=== PATIENT | male | born 1945 | race Caucasian/White ===

== ENCOUNTER 2016-09-05 04:52 | Observation (INO) ==
--- NOTE | 2016-09-05 05:38 | Emergency Department Note ---
Disposition Clinical Impression: Acute exacerbation of chronic obstructive airways disease Disposition: Admitted As Inpatient Condition: Fair Referrals: Babatunde Maldonado, [employer] [Primary Care Provider] - SOB HPI - General Stated Complaint: shortness of breath Source: patient Mode of arrival: EMS Limitations: no limitations Nursing Notes Reviewed: Yes Vital Signs Reviewed: Yes - History of Present Illness Patient presents to the ED via EMS with report of worsening shortness of breath and lower extremity swelling. Patient was just recently hospitalized at [facility] from 08/24-08/27 for CHF and COPD exacerbation. States he has had increasing dyspnea and swelling since then. He has a chronic cough that is productive of clear sputum. He reports nasal congestion and rhinorrhea but no sore throat. He reports chills but no fever. He denies any chest pain, nausea, vomiting, diarrhea or constipation. He wears home O2 at 4 L and is on Lasix 40mg BID. No CPAP or BiPAP. He saw his PCP, Tk Maldonado on 09/01 for follow-up and was given another three-day course of prednisone. He was on a prednisone taper at discharge and also completed 6 days of ceftin. Per EMS, oxygen saturation was 88-90% on 4 L on their arrival. He was given albuterol, DuoNeb, 80 mg Lasix IV , 125 mg Solu-Medrol IV, 0.3 mg epi 1:1000 IV and Zofran 4 mg IV. He was placed on CPAP during transport. States his breathing is improved but he still feels short of breath. In addition to CHF and COPD patient has history of diabetes and multiple myeloma for which he is undergoing chemotherapy. states he was seen by home health yesterday and "his vitals were all good". He also saw oncology on 08/31 and 09/01 and received his usual chemotherapy doses. - Related Data Home Medications Medication Instructions Recorded Confirmed Levothyroxine [Synthroid] 175 mcg PO DAILY 09/06/15 08/24/16 Aspirin [Adult Low Dose Aspirin EC] 81 mg PO DAILY 09/13/15 08/24/16 Simvastatin [Zocor] 40 mg PO HS 09/13/15 08/24/16 Gabapentin [Neurontin] 300 mg PO TID 02/11/16 08/24/16 SitaGLIPtin [Januvia] 100 mg PO DAILY 02/11/16 08/24/16 Dicyclomine HCl [Bentyl] 20 mg PO QID PRN 05/11/16 08/24/16 Insulin Glargine,Hum.rec.anlog 75 unit SQ BID 05/11/16 08/24/16 [Lantus Solostar] Insulin LISPRO [Humalog Kwikpen 45 - 55 unit SQ TIDWM 05/11/16 08/24/16 U-100] Montelukast [Singulair] 10 mg PO DAILY 05/11/16 08/24/16 Potassium Chloride [K-Tab ER] 40 meq PO Q48H 05/11/16 08/24/16 Furosemide [Lasix] 40 mg PO BID 08/24/16 08/24/16 Ipratropium/Albuterol Neb [Duoneb] 3 ml IH Q4HR 08/24/16 08/24/16 Metolazone [Zaroxolyn] 5 mg PO DAILY 08/24/16 08/24/16 Primidone [Mysoline] 50 mg PO BID 08/24/16 08/24/16 Fentanyl [Duragesic] 75 mcg TD Q72H PRN 09/05/16 09/05/16 Lansoprazole [Prevacid] 30 mg PO DAILY 09/05/16 09/05/16 Previous Rx's Medication Instructions Recorded Ondansetron [Zofran] 8 mg PO BID #60 tablet 11/01/15 Propranolol HCl 40 mg PO BID #60 tablet 06/11/16 ClonazePAM [Klonopin] 0.25 mg PO BID PRN #7 tablet 07/03/16 Gentamicin Oint [Garamycin] 1 appl TP DAILY #1 tube 07/03/16 Guaifenesin [Guaifenesin ER] 1,200 mg PO BID PRN #40 tab.er.12h 07/03/16 FentaNYL PATCH [Duragesic] 50 mcg TD Q72H #10 patch.td72 07/28/16 Pomalidomide [Pomalyst] 2 mg PO DAILY #21 capsule 08/19/16 PredniSONE 60 mg PO DAILY #30 tablet 08/27/16 Allergies Allergy/AdvReac Type Severity Reaction Status Date / Time No Known Allergies Allergy Verified 09/05/16 05:11 Constitutional: Denies: fever, chills, weakness, weight change Eyes: Denies: eye pain, eye discharge, vision change ENT ED: Denies: ear pain, throat pain, dental pain, hearing loss, epistaxis, congestion, dysphagia Cardiovascular: Reports: as per HPI, edema. Denies: chest pain, palpitations, dyspnea on exertion, syncope Respiratory: Reports: as per HPI, cough, dyspnea, wheezes, sputum production. Denies: hemoptysis, stridor Gastrointestinal: Denies: abdominal pain, nausea, vomiting, diarrhea, constipation, hematemesis, melena, hematochezia Genitourinary: Denies: urgency, dysuria, frequency, hematuria Musculoskeletal: Denies: back pain, neck pain, arthralgia, myalgia Integumentary: Denies: rash, abrasion, lesions Neurological: Denies: headache, weakness, numbness, paresthesias, confusion, abnormal gait, vertigo Psychiatric: Denies: anxiety, depression, suicidal thoughts, homicidal thoughts , auditory hallucinations, visual hallucinations Endocrine: Denies: fatigue Hematological/Lymphatic: Denies: easy bleeding, easy bruising Allergic/Immunologic: Denies: facial swelling, urticaria Past Medical History - Past Medical History Medical history: Reports: cancer (multiple myeloma - follows with Dr. Mcduffie), CHF , COPD, coronary artery disease, diabetes, GERD, hyperlipidemia, myocardial infarction, thyroid disease Surgical history: Reports: angioplasty/stent, orthopedic, other Psychiatric history: Reports: depression - Social History Smoking Status: Former smoker Smokeless Tobacco Status: No Alcohol use: Reports: none Drug use: Reports: none Physical Exam - General Limitations: no limitations General appearance: alert, anxious, in distress - Head Head exam: atraumatic, normocephalic, normal inspection - Eye Eye exam: Present: normal appearance, PERRL, EOMI - ENT ENT exam: normal exam, normal oropharynx, mucous membranes moist - Neck Neck exam: Present: normal inspection, full ROM, trachea midline - Chest Chest inspection: Present: normal inspection, symmetric chest wall rise - Respiratory Respiratory exam: Present: respiratory distress (mild, tachypneic), wheezes, accessory muscle use - Expanded Respiratory Exam Location: wheezes: Left, Right, Upper, Lower, decreased breath sounds: Left, Right, Upper, Lower - Cardiovascular Cardiovascular exam: Present: regular rate, normal rhythm, normal heart sounds - Abdominal Exam Abdominal exam: Present: soft, Non-Tender. Absent: tenderness, distention, guarding, rebound, rigidity - Extremities Exam Extremities exam: Present: normal inspection, full ROM, pedal edema (2-3+ symmetrical pitting B/L to knees). Absent: tenderness - Back Exam Back exam: Present: normal inspection, full ROM. Absent: tenderness - Neurological Exam Neurological exam: Present: alert, oriented X3 - Psychiatric Psychiatric exam: Present: normal affect, normal mood - Skin Skin exam: Present: warm, dry, intact, normal color Course Course Narrative: Patient presents with worsening shortness breath or lower extremity edema since being discharged on August 27 for a COPD and CHF exacerbation. was apparently in significant distress on EMS arrival and has improved slightly after nebulizers, IV steroids, IV Lasix and IV atropine. Will obtain chest x- ray and labs. Will continue oxygen. Given his significant symptomatology he will likely require readmission. - Reevaluation(s) Reevaluation #1: Evaluation patient is more relaxed but is still tachycardic. He becomes extremely dyspneic with minimal exertion such as position change. Laboratory studies show normal troponin and BNP. No leukocytosis. Chest x-ray shows left basilar atelectasis versus pneumonia. Given no productive sputum, fever or leukocytosis is strong suspicion for pneumonia but given his severe disease will start an antibiotic. Patient is still very anxious about his breathing and is not comfortable going home. I agree he would benefit from readmission. I spoke to the hospitalist on-call, Dr. Suárez who is in agreement. Patient and updated on plan. now mentions that when he was last hospitalized they talked about sending him to this facility for rehabilitation but did not do so. She would like this to be reconsidered as she thinks he would benefit from some strengthening. Time: 06:56 Vital Signs Temperature 98.9 F 09/05/16 05:23 Pulse Rate 115 09/05/16 05:23 Respiratory Rate 14 09/05/16 05:23 Blood Pressure 133/88 09/05/16 05:23 O2 Sat by Pulse Oximetry 95 09/05/16 05:23 Temperature 98.9 F 09/05/16 05:23 Pulse Rate 98 09/05/16 06:55 Respiratory Rate 12 09/05/16 06:55 Blood Pressure 114/69 09/05/16 06:55 O2 Sat by Pulse Oximetry 95 09/05/16 06:55 Oxygen Delivery Oxygen Delivery Nasal Cannula Shortness of Breath/Dyspnea - Differential Diagnosis Likely: acute exacerbation of chronic obstructive airways disease, congestive heart failure. Unlikely: pneumonia, pulmonary embolism, arrhythmia - Medical Records Medical records reviewed: Yes I reviewed the patient's medical records. - Lab Data Lab results reviewed: Yes I reviewed the patient's lab results. Result diagrams: 09/05/16 06:00 09/05/16 06:00 Lab Results 09/05/16 09/05/16 09/05/16 Range/Units 06:00 06:00 06:00 WBC 5.9 (4.3-11.1) K/mcL RBC 3.71 L (4.19-5.50) M/mcL Hgb 11.7 L (12.9-16.9) g/dL Hct 35.8 L (37.5-50.1) % MCV 96.5 (83.0-100.0) fL MCH 31.5 (28.0-33.3) pg MCHC 32.7 (31.6-35.5) g/dL RDW 16.7 H (11.5-14.5) % Plt Count 130 L (140-400) K/mcL MPV 9.7 (9.4-12.4) fL Immature Gran % 1.4 (0-4) % Seg Neutrophils % 83.7 % Lymphocytes % 8.5 % Monocytes % 5.2 % Eosinophils % 1.0 % Basophils % 0.2 % Neutrophils # 5.0 (1.6-8.9) K/mcL Lymphocytes # 0.5 L (0.6-4.6) K/mcL Monocytes # 0.3 (0.0-1.3) K/mcL Eosinophils # 0.1 (0.0-0.6) K/mcL Basophils # 0.0 (0.0-0.2) K/mcL Sodium 140 (136-145) mEq/L Potassium 4.4 (3.5-4.5) mEq/L Chloride 98 (98-109) mEq/L Carbon Dioxide 32 H (19-29) mEq/L BUN 16 (8-26) mg/dL Creatinine 1.03 (0.72-1.25) mg/dL Est GFR ( Amer) > 60 (> 60) Est GFR (Non-Af Amer) > 60 (> 60) BUN/Creatinine Ratio 16 (6-26) Glucose 164 H (70-99) mg/dL Calculated Osmolality 295 (280-300) Calcium 9.5 (8.6-10.8) mg/dL Troponin I 0.02 (0-0.03) ng/mL B-Natriuretic Peptide (0-100) pg/mL 09/05/16 Range/Units 06:00 WBC (4.3-11.1) K/mcL RBC (4.19-5.50) M/mcL Hgb (12.9-16.9) g/dL Hct (37.5-50.1) % MCV (83.0-100.0) fL MCH (28.0-33.3) pg MCHC (31.6-35.5) g/dL RDW (11.5-14.5) % Plt Count (140-400) K/mcL MPV (9.4-12.4) fL Immature Gran % (0-4) % Seg Neutrophils % % Lymphocytes % % Monocytes % % Eosinophils % % Basophils % % Neutrophils # (1.6-8.9) K/mcL Lymphocytes # (0.6-4.6) K/mcL Monocytes # (0.0-1.3) K/mcL Eosinophils # (0.0-0.6) K/mcL Basophils # (0.0-0.2) K/mcL Sodium (136-145) mEq/L Potassium (3.5-4.5) mEq/L Chloride (98-109) mEq/L Carbon Dioxide (19-29) mEq/L BUN (8-26) mg/dL Creatinine (0.72-1.25) mg/dL Est GFR ( Amer) (> 60) Est GFR (Non-Af Amer) (> 60) BUN/Creatinine Ratio (6-26) Glucose (70-99) mg/dL Calculated Osmolality (280-300) Calcium (8.6-10.8) mg/dL Troponin I (0-0.03) ng/mL B-Natriuretic Peptide 34 (0-100) pg/mL - Radiology Data Radiology results reviewed: Yes I reviewed the patient's radiology results. ITS Impressions Chest X-Ray 09/05/16 05:38 IMPRESSION: Left basilar atelectasis versus pneumonia. D/ / Ismael Mercado MD / Ismael Mercado MD Interpreting Provider: Ismael Mercado MD - EKG Data EKG attestation: Yes I reviewed and interpreted this EKG. EKG shows normal: Reports: sinus rhythm Rate: Reports: tachycardia Rhythm: Reports: NSR, PVC's Interpretation: Reports: no acute changes, nonspecific ST-T wave changes. Denies: unchanged when compared to prior tracing (date) (08/24/16)
[2016-09-05 06:12] LABS: Basophils % 0.2 %; Eosinophils # 0.1 K/mcL (0.0-0.6); Hematocrit 35.8 % (37.5-50.1); Hemoglobin 11.7 g/dL (12.9-16.9); Immature Granulocytes % 1.4 % (0-4); Lymphocytes # 0.5 K/mcL (0.6-4.6); Lymphocytes % 8.5 %; Mean Corpuscular HGB Conc 32.7 g/dL (31.6-35.5); Mean Corpuscular Hemoglobin 31.5 pg (28.0-33.3); Mean Corpuscular Volume 96.5 fL (83.0-100.0); Mean Platelet Volume 9.7 fL (9.4-12.4); Monocytes # 0.3 K/mcL (0.0-1.3); Monocytes % 5.2 %; Platelet Count 130 K/mcL (140-400); Red Blood Count 3.71 M/mcL (4.19-5.50); Red Cell Distribution Width 16.7 % (11.5-14.5); Segmented Neutrophils % 83.7 %
[2016-09-05 06:24] LABS: BUN/Creatinine Ratio 16 (6-26); Blood Urea Nitrogen 16 mg/dL (8-26); Calcium 9.5 mg/dL (8.6-10.8); Carbon Dioxide 32 mEq/L (19-29); Chloride 98 mEq/L (98-109); Glucose 164 mg/dL (70-99); Osmolality,Calculated 295 (280-300); Potassium 4.4 mEq/L (3.5-4.5); Sodium 140 mEq/L (136-145); eGFR For African Americans > 60 (> 60); eGFR For Non-African Americans > 60 (> 60)
[2016-09-05] MEDS ORDERED: Naloxone 0.4 MG/ML INJ IVP PRN (06:59)
[2016-09-05] MEDS ORDERED: ClonazePAM 0.5 MG TABLET PO PRN (07:02)
[2016-09-05] MEDS ORDERED: *HR* FentaNYL PATCH 50 MCG PATCH TD PRN (07:02)
[2016-09-05] MEDS ORDERED: MethylPREDNISolone 40 MG/ML VIAL IVP SCH (09:00)
[2016-09-05] MEDS: Ipratropium/Albuterol Neb 3 ML IH SCH ×5 (10:09→23:46)
[2016-09-05] MEDS: *HR* SitaGLIPtin 100 MG TABLET PO SCH (10:15)
[2016-09-05] MEDS: Aspirin Enteric Coated 81 MG Tablet PO SCH (10:15)
[2016-09-05] MEDS: Gabapentin 300 MG CAPSULE PO SCH ×3 (10:16→21:33)
[2016-09-05] MEDS: Ondansetron ODT 4 MG TAB.RAPDIS PO SCH ×2 (10:17→21:34)
[2016-09-05] MEDS: Insulin LISPRO 300 UNITS/3 ML VIAL SQ SCH ×3 (10:18→17:08)
[2016-09-05] MEDS: *HR* FentaNYL PATCH 50 MCG PATCH TD SCH (10:18)
[2016-09-05] MEDS: Gentamicin Oint 15 GM TUBE TP SCH (10:19)
[2016-09-05] MEDS: Furosemide 40 MG/4 ML VIAL IVP SCH ×2 (10:19→21:32)
[2016-09-05] MEDS: Levofloxacin 500 MG/100 ML 500 MG/100 ML BAG IVPB SCH (10:20)
[2016-09-05] MEDS: Insulin DETEMIR 100 UNIT/ML X5UNITS SQ SCH ×2 (10:21→21:42)
[2016-09-05] MEDS: (Pomalidomide [Pomalyst] 2 MG) PO SCH (10:22)
[2016-09-05] MEDS: Primidone 50 MG TABLET PO SCH ×2 (10:35→21:43)
--- NOTE | 2016-09-05 12:12 | Internal Med History&Physical ---
Date of Encounter: 09/07/16 Time of Encounter: 12:00 Assessment and Plan (1) Multiple myeloma Current visit: No Status: Chronic History of multiple myeloma. 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 (3) Nausea Current visit: No Status: Acute No nausea this time (4) Acute exacerbation of chronic obstructive airways disease Current visit: Yes Status: Chronic This is the current admission diagnosis Internal Medicine - H&P: HPI Chief complaint: Patient's known COPD or also has the comorbidity of congestive heart failur Admitted From: Emergency Dept Plans for Post Hospital Care: Home History of present illness: Mr. Joseph is a 71 year old male Patient has home O2 treatments. But felt he was more short of breath felt smothered. States he is much improved at this point and we will continue to support him. Past Med Surg Social Fam HX - Past Medical History Medical history: cancer (multiple myeloma - follows with Dr. Mcduffie), CHF, COPD, coronary artery disease, diabetes, GERD, hyperlipidemia, myocardial infarction, thyroid disease Psychiatric history: depression - Past Surgical History Surgical History: angioplasty/stent, orthopedic, other - Social History Smoking Status: Former smoker Smokeless Tobacco Status: No Alcohol use: none Drug use: none - Family History Father Family Member Ethnicity: Non- Living Status: Hx Family Cardiac Disorders: Yes Mother Living Status: Hx Family Cardiac Disorders: Yes Hx Family Respiratory Disorders: Yes (COPD) Hx Family Cancer: Yes (Lung cancer) Hx Family GI Disorders: No Hx Family Endocrine Disorder: Yes (DM, Thyroid) Hx Family Neuromuscular Disorders: No Hx Family Neurologic Disorders: No Hx Family HEENT Disorders: No Hx Family Autoimmune Disorders: No Internal Medicine - H&P: Meds Levothyroxine [Synthroid] 175 mcg PO DAILY 09/06/15 [History] Aspirin [Adult Low Dose Aspirin EC] 81 mg PO DAILY 09/13/15 [History] Simvastatin [Zocor] 40 mg PO HS 09/13/15 [History] Ondansetron [Zofran] 8 mg PO BID #60 tablet 11/01/15 [Rx] Gabapentin [Neurontin] 300 mg PO TID 02/11/16 [History] SitaGLIPtin [Januvia] 100 mg PO DAILY 02/11/16 [History] Dicyclomine HCl [Bentyl] 20 mg PO QID PRN 05/11/16 [History] Insulin Glargine,Hum.rec.anlog [Lantus Solostar] 75 unit SQ BID 05/11/16 [ History] Insulin LISPRO [Humalog Kwikpen U-100] 45 - 55 unit SQ TIDWM 05/11/16 [History] Montelukast [Singulair] 10 mg PO DAILY 05/11/16 [History] Potassium Chloride [K-Tab ER] 40 meq PO Q48H 05/11/16 [History] Propranolol HCl 40 mg PO BID #60 tablet 06/11/16 [Rx] ClonazePAM [Klonopin] 0.25 mg PO BID PRN #7 tablet 07/03/16 [Rx] Gentamicin Oint [Garamycin] 1 appl TP DAILY #1 tube 07/03/16 [Rx] Guaifenesin [Guaifenesin ER] 1,200 mg PO BID PRN #40 tab.er.12h 07/03/16 [Rx] FentaNYL PATCH [Duragesic] 50 mcg TD Q72H #10 patch.td72 07/28/16 [Rx] Pomalidomide [Pomalyst] 2 mg PO DAILY #21 capsule 08/19/16 [Rx] Furosemide [Lasix] 40 mg PO BID 08/24/16 [History] Ipratropium/Albuterol Neb [Duoneb] 3 ml IH Q4HR 08/24/16 [History] Metolazone [Zaroxolyn] 5 mg PO DAILY 08/24/16 [History] Primidone [Mysoline] 50 mg PO BID 08/24/16 [History] PredniSONE 60 mg PO DAILY #30 tablet 08/27/16 [Rx] Fentanyl [Duragesic] 75 mcg TD Q72H PRN 09/05/16 [History] Lansoprazole [Prevacid] 30 mg PO DAILY 09/05/16 [History] Allergies No Known Allergies Allergy (Verified 09/05/16 05:11) All Systems PM: A 10-system review of systems was performed and is negative for pertinent findings except as documented above in the HPI. - Constitutional Vitals: Temp Pulse Resp BP Pulse Ox 97.1 F L 70 18 121/66 96 09/05/16 11:26 09/05/16 11:26 09/05/16 11:26 09/05/16 11:26 09/05/16 11:26 - Head Head exam: Present: atraumatic, normal inspection, normocephalic - Neck Neck exam general surgery: Present: supple, trachea midline. Absent: lymphadenopathy - Respiratory Respiratory exam: Present: decreased breath sounds, CTAB, prolonged expiratory phase. Absent: accessory muscle use, rales, rhonchi, wheezes - Cardiovascular Cardiovascular exam: Present: RRR, +S1, +S2. Absent: diastolic murmur, gallop, rubs, systolic murmur - GI/Abdominal GI/Abdominal exam: Present: normal bowel sounds, soft, no peritoneal signs. Absent: distended, tenderness Internal Med - H&P Results - Labs CBC & Chem 7: 09/05/16 06:00 09/05/16 06:00 Labs: Lab is basically stable - VTE Reasons for not Prescribing Prophylaxis: Treatment not Indicated - Low risk for VTE
[2016-09-06] MEDS: Ipratropium/Albuterol Neb 3 ML IH SCH ×5 (04:26→20:21)
[2016-09-06] MEDS: *HR* Enoxaparin 40 MG/0.4 ML SYRINGE SQ SCH (04:26)
[2016-09-06] MEDS: Levofloxacin 500 MG/100 ML 500 MG/100 ML BAG IVPB SCH (08:36)
[2016-09-06] MEDS: Furosemide 40 MG/4 ML VIAL IVP SCH ×2 (08:38→20:21)
[2016-09-06] MEDS: Insulin LISPRO 300 UNITS/3 ML VIAL SQ SCH ×3 (08:47→16:49)
[2016-09-06] MEDS: Insulin DETEMIR 100 UNIT/ML X5UNITS SQ SCH ×2 (08:47→20:22)
[2016-09-06] MEDS: Ondansetron ODT 4 MG TAB.RAPDIS PO SCH ×2 (08:47→20:22)
[2016-09-06] MEDS: Aspirin Enteric Coated 81 MG Tablet PO SCH (08:50)
[2016-09-06] MEDS: (Pomalidomide [Pomalyst] 2 MG) PO SCH (08:51)
[2016-09-06] MEDS: Primidone 50 MG TABLET PO SCH ×2 (08:51→17:15)
[2016-09-06] MEDS: *HR* SitaGLIPtin 100 MG TABLET PO SCH (08:51)
[2016-09-06] MEDS: Gabapentin 300 MG CAPSULE PO SCH ×3 (08:51→20:22)
[2016-09-06] MEDS: Gentamicin Oint 15 GM TUBE TP SCH (08:51)
[2016-09-06] MEDS: *HR* FentaNYL PATCH 50 MCG PATCH TD SCH (13:15)
--- NOTE | 2016-09-06 17:55 | Electrocardiograph Report ---
[address] [address] Test Date: 2016-09-05 Pat Name: Olman Joseph Department: 2000 Room: 111 Gender: M [employer] Supervisor: : 1945 Requested By: Santos Suárez Order Number: [id number] Reading MD: Asiya Garcia Measurements Intervals [place] Rate: 115 P: VT: 0 QRS: 263 QRSD: 81 T: 58 QT: 309 QTc: 377 Interpretive Statements SUPRAVENTRICULAR TACHYCARDIA PVCS LAFB Electronically Signed On 09-06-2016 17:54:10 EDT by Asiya Garcia
--- NOTE | 2016-09-06 22:52 | Internal Med Progress Note ---
Date of Encounter: 09/06/16 Time of Encounter: 22:49 - Assessment and plan (1) Acute exacerbation of chronic obstructive airways disease Current Visit: Yes Status: Chronic Assessment and plan: Improving with IV Solu-Medrol and IV Levaquin. (2) Edema extremities Current Visit: Yes Status: Chronic Assessment and plan: Slight improvement with IV Lasix. We will continue diuretics. - Time Spent With Patient less than 15 minutes - Subjective Interval history: Feels better today. Less cough. The shortness of breath. Still anxious about going home. Still complains of dyspnea on exertion. Still has the same edema. - Constitutional Vitals: Temp Pulse Resp BP Pulse Ox 97.3 F L 65 20 129/75 95 09/06/16 19:58 09/06/16 19:58 09/06/16 19:58 09/06/16 19:58 09/06/16 19:58 General appearance: Present: A&O X 3, pleasant, no acute distress - Respiratory Respiratory exam: Present: decreased breath sounds, wheezes. Absent: accessory muscle use, rales, respiratory distress, rhonchi - Cardiovascular Cardiovascular exam: Present: RRR, +S1, +S2. Absent: diastolic murmur, gallop, rubs, systolic murmur - GI/Abdominal GI/Abdominal exam: Present: normal bowel sounds, soft, no peritoneal signs. Absent: distended, tenderness - Extremities Exam Extremities exam: Present: pedal edema Internal Medicine: Result - Labs CBC & Chem 7: 09/05/16 06:00 09/05/16 06:00 - VTE Reasons for not Prescribing Prophylaxis: Treatment not Indicated - Low risk for VTE Consult Discharge Plan - Plan
[2016-09-07] MEDS: Ipratropium/Albuterol Neb 3 ML IH SCH ×3 (00:09→08:06)
[2016-09-07] MEDS: *HR* Enoxaparin 40 MG/0.4 ML SYRINGE SQ SCH (04:18)
[2016-09-07] MEDS: Levofloxacin 500 MG/100 ML 500 MG/100 ML BAG IVPB SCH (08:06)
[2016-09-07] MEDS: Gentamicin Oint 15 GM TUBE TP SCH (08:06)
[2016-09-07] MEDS: Primidone 50 MG TABLET PO SCH (08:06)
[2016-09-07] MEDS: Insulin LISPRO 300 UNITS/3 ML VIAL SQ SCH (08:07)
[2016-09-07] MEDS: Insulin DETEMIR 100 UNIT/ML X5UNITS SQ SCH (08:08)
[2016-09-07] MEDS: Gabapentin 300 MG CAPSULE PO SCH (08:09)
[2016-09-07] MEDS: Aspirin Enteric Coated 81 MG Tablet PO SCH (08:10)
[2016-09-07] MEDS: Ondansetron ODT 4 MG TAB.RAPDIS PO SCH (08:10)
[2016-09-07] MEDS: *HR* SitaGLIPtin 100 MG TABLET PO SCH (08:10)
[2016-09-07] MEDS: Furosemide 40 MG/4 ML VIAL IVP SCH (08:11)
[2016-09-07] MEDS: (Pomalidomide [Pomalyst] 2 MG) PO SCH (08:12)
--- NOTE | 2016-09-07 11:49 | Discharge Summary ---
Date of Encounter: 09/07/16 Time of Encounter: 11:30 - Discharge Diagnosis (1) Multiple myeloma Priority: Secondary Status: Chronic Qualifiers: Qualified Code(s): C90.00 - Multiple myeloma not having achieved remission (2) Malignant bone pain Priority: Secondary Status: Chronic (3) Nausea Priority: Secondary Status: Acute (4) Acute exacerbation of chronic obstructive airways disease Priority: Primary Status: Chronic - Discharge Medications Home Medications: Levothyroxine [Synthroid] 175 mcg PO DAILY 09/06/15 [History] Aspirin [Adult Low Dose Aspirin EC] 81 mg PO DAILY 09/13/15 [History] Simvastatin [Zocor] 40 mg PO HS 09/13/15 [History] Ondansetron [Zofran] 8 mg PO BID #60 tablet 11/01/15 [Rx] Gabapentin [Neurontin] 300 mg PO TID 02/11/16 [History] SitaGLIPtin [Januvia] 100 mg PO DAILY 02/11/16 [History] Dicyclomine HCl [Bentyl] 20 mg PO QID PRN 05/11/16 [History] Insulin Glargine,Hum.rec.anlog [Lantus Solostar] 75 unit SQ BID 05/11/16 [ History] Insulin LISPRO [Humalog Kwikpen U-100] 45 - 55 unit SQ TIDWM 05/11/16 [History] Montelukast [Singulair] 10 mg PO DAILY 05/11/16 [History] Potassium Chloride [K-Tab ER] 40 meq PO Q48H 05/11/16 [History] Propranolol HCl 40 mg PO BID #60 tablet 06/11/16 [Rx] ClonazePAM [Klonopin] 0.25 mg PO BID PRN #7 tablet 07/03/16 [Rx] Gentamicin Oint [Garamycin] 1 appl TP DAILY #1 tube 07/03/16 [Rx] Guaifenesin [Guaifenesin ER] 1,200 mg PO BID PRN #40 tab.er.12h 07/03/16 [Rx] FentaNYL PATCH [Duragesic] 50 mcg TD Q72H #10 patch.td72 07/28/16 [Rx] Pomalidomide [Pomalyst] 2 mg PO DAILY #21 capsule 08/19/16 [Rx] Furosemide [Lasix] 40 mg PO BID 08/24/16 [History] Ipratropium/Albuterol Neb [Duoneb] 3 ml IH Q4HR 08/24/16 [History] Metolazone [Zaroxolyn] 5 mg PO DAILY 08/24/16 [History] Primidone [Mysoline] 50 mg PO BID 08/24/16 [History] PredniSONE 60 mg PO DAILY #30 tablet 08/27/16 [Rx] Fentanyl [Duragesic] 75 mcg TD Q72H PRN 09/05/16 [History] Lansoprazole [Prevacid] 30 mg PO DAILY 09/05/16 [History] Allergies/Adverse Reactions: Allergies No Known Allergies Allergy (Verified 09/05/16 05:11) Procedures/tests Complete & Pending: Procedures Performed prior 72 hours Category Date Time Status ECG 12 lead ECG [ECG] Routine Y 09/05/16 04:58 Completed Date of admission: 09/05/16 07:08 Primary care physician: Babatunde Maldonado CNP Discharging clinician: Santos Suárez Anticipated date of discharge: 09/07/16 - Patient Status Disposition: Home, Self-Care Condition: Good Functional capacity at discharge: independent ambulation Overall status at discharge: patient is back to baseline - Discharge Instructions Follow Up With: Babatunde Maldonado CNP [Primary Care Provider] - Forms: ED Satisfaction Letter - Diet and Activity Diet: diabetic diet Interval History: Patient feels much better and vital signs are stable he states his breathing back to baseline and be discharged home today Hospital course: Mr. Joseph is a 71 year old male Who was admitted from the emergency room for acute exacerbation of COPD. he is much improved and will discharge him home onprednisone in a .decreasing dose - Time Spent with Patient Total time spent providing and/or coordinating discharge services: Less than 30 minutes - Constitutional Vitals: Temp Pulse Resp BP Pulse Ox 97.6 F 56 16 147/72 99 09/07/16 07:09 09/07/16 07:09 09/07/16 07:09 09/07/16 07:09 09/07/16 07:09 General appearance: Present: A&O X 3, pleasant, no acute distress - Head Head exam: Present: atraumatic, normal inspection, normocephalic - Neck Neck exam general surgery: Present: supple, trachea midline. Absent: lymphadenopathy - Respiratory Respiratory exam: Present: CTAB. Absent: accessory muscle use, rales, rhonchi, wheezes - Cardiovascular Cardiovascular exam: Present: RRR, +S1, +S2. Absent: diastolic murmur, gallop, rubs, systolic murmur - GI/Abdominal GI/Abdominal exam: Present: normal bowel sounds, soft, no peritoneal signs. Absent: distended, tenderness - VTE Reasons for not Prescribing Prophylaxis: Treatment not Indicated - Low risk for VTE
[2016-09-07 11:59] VITALS: BP 137/75
== END 2016-09-07 12:40 | disposition home or self-care (01) ==
LOC: INPGRE 04:52 → EMEROOGRE 04:52 → INPGRE 08:11
PROVIDERS: ADMIT Internal Medicine; ATTEND Internal Medicine

== ENCOUNTER 2016-09-19 18:46 | Observation (INO) ==
--- NOTE | 2016-09-19 19:00 | Emergency Department Note ---
Disposition Clinical Impression: Pneumonia Disposition: Admitted As Inpatient Condition: Fair Time of Disposition: 20:00 SOB HPI - General Chief Complaint: ED Shortness of Breath/Dyspnea Stated Complaint: difficulty breathing Source: patient, family Nursing Notes Reviewed: Yes Vital Signs Reviewed: Yes - History of Present Illness Mr. Delaney has had a productive cough for the last 3-4 days. No fever no chills. He woke up today especially short of breath and dizzy and lightheaded. He had some vision issues as well and was having trouble maintaining his balance. No nausea vomiting or diarrhea. No muscle aches. He does have a cardiac history but denies any chest pain or palpitations diaphoresis. He was in the hospital for similar symptoms about 2 weeks ago. This was for a COPD exacerbation. He feels similarly today. He is on home oxygen typically at 3 L. Unfortunately continues to smoke. Past medical history is also significant for multiple myeloma. He was recently seen by his oncologist. Pt Subjective Complaint: shortness of breath, cough - Related Data Home Medications Medication Instructions Recorded Confirmed Levothyroxine [Synthroid] 175 mcg PO DAILY 09/06/15 09/19/16 Aspirin [Adult Low Dose Aspirin EC] 81 mg PO DAILY 09/13/15 09/19/16 Simvastatin [Zocor] 40 mg PO HS 09/13/15 09/19/16 Gabapentin [Neurontin] 300 mg PO TID 02/11/16 09/19/16 SitaGLIPtin [Januvia] 100 mg PO DAILY 02/11/16 09/19/16 Insulin Glargine,Hum.rec.anlog 75 unit SQ BID 05/11/16 09/19/16 [Lantus Solostar] Insulin LISPRO [Humalog Kwikpen 45 - 55 unit SQ TIDWM 05/11/16 09/19/16 U-100] Montelukast [Singulair] 10 mg PO DAILY 05/11/16 09/19/16 Potassium Chloride [K-Tab ER] 40 meq PO Q48H 05/11/16 09/19/16 Furosemide [Lasix] 40 mg PO BID 08/24/16 09/19/16 Ipratropium/Albuterol Neb [Duoneb] 3 ml IH Q4HR 08/24/16 09/19/16 Metolazone [Zaroxolyn] 5 mg PO DAILY 08/24/16 09/19/16 Primidone [Mysoline] 50 mg PO BID 08/24/16 09/19/16 Fentanyl [Duragesic] 75 mcg TD Q72H PRN 09/05/16 09/19/16 Lansoprazole [Prevacid] 30 mg PO DAILY 09/05/16 09/19/16 Previous Rx's Medication Instructions Recorded Ondansetron [Zofran] 8 mg PO BID #60 tablet 11/01/15 Propranolol HCl 40 mg PO BID #60 tablet 06/11/16 ClonazePAM [Klonopin] 0.25 mg PO BID PRN #7 tablet 07/03/16 Gentamicin Oint [Garamycin] 1 appl TP DAILY #1 tube 07/03/16 Guaifenesin [Guaifenesin ER] 1,200 mg PO BID PRN #40 tab.er.12h 07/03/16 Pomalidomide [Pomalyst] 2 mg PO DAILY #21 capsule 09/15/16 FentaNYL PATCH [Duragesic] 50 mcg TD Q72H #10 patch.td72 09/16/16 Allergies Allergy/AdvReac Type Severity Reaction Status Date / Time No Known Allergies Allergy Verified 09/19/16 20:59 Constitutional: Denies: fever, chills Eyes: Reports: vision change ENT ED: Denies: dysphagia Cardiovascular: Reports: dyspnea on exertion. Denies: chest pain, palpitations Respiratory: Reports: cough, dyspnea, sputum production Gastrointestinal: Denies: nausea, vomiting, diarrhea Musculoskeletal: Reports: back pain (Back pain is chronic secondary to myeloma for which he has a fentanyl patch recently decreased to 50 g at oncology visit) . Denies: myalgia Neurological: Reports: other (He has an occasional tremor). Denies: headache Endocrine: Reports: fatigue Past Medical History - Past Medical History Medical history: Reports: cancer (multiple myeloma - follows with Dr. Mcduffie), CHF , COPD, coronary artery disease, diabetes, GERD, hyperlipidemia, myocardial infarction, thyroid disease Surgical history: Reports: angioplasty/stent, orthopedic, other Psychiatric history: Reports: depression - Social History Smoking Status: Former smoker Smokeless Tobacco Status: No Alcohol use: Reports: none Drug use: Reports: none Physical Exam - General Limitations: no limitations General appearance: alert, other (Able to speak in full sentences but is using accessory muscles to breathe.) - Head Head exam: atraumatic - Eye Eye exam: Present: normal appearance - ENT ENT exam: normal oropharynx - Neck Neck exam: Present: normal inspection. Absent: lymphadenopathy - Respiratory Respiratory exam: Present: respiratory distress, other (Inspiratory crackles bilateral bases that do not clear with coughing. Left slightly worse than right. Decreased air exchange bilaterally with very faint end expiratory wheezes bilaterally) - Cardiovascular Cardiovascular exam: Present: tachycardia, normal heart sounds. Absent: systolic murmur, diastolic murmur - Abdominal Exam Abdominal exam: Present: soft, Non-Tender - Extremities Exam Extremities exam: Present: pedal edema (He has MARK hose on that were not removed. He appears to have some edema bilaterally symmetrically.) - Neurological Exam Neurological exam: Present: alert - Psychiatric Psychiatric exam: Present: normal affect, normal mood - Skin Skin exam: Present: warm, dry Course Vital Signs Temperature 97.2 F L 09/19/16 18:48 Pulse Rate 106 09/19/16 18:48 Respiratory Rate 32 09/19/16 18:48 Blood Pressure 144/72 09/19/16 18:48 O2 Sat by Pulse Oximetry 99 09/19/16 18:48 Temperature 97.2 F L 09/19/16 18:48 Pulse Rate 89 09/19/16 19:48 Respiratory Rate 16 09/19/16 19:48 Blood Pressure 117/59 09/19/16 19:48 O2 Sat by Pulse Oximetry 92 09/19/16 19:48 Oxygen Delivery Oxygen Delivery Nasal Cannula Shortness of Breath/Dyspnea - MDM Narrative Medical decision making narrative: Shortness of breath. Probably secondary to pneumonia and COPD. He felt a lot better after 2 DuoNeb treatment here in the emergency department. He was turned down to 2 L and oxygen saturations were maintained 90-93%. Because of his elevated blood sugar he will be treated with insulin and a decreased dose of prednisone along with DuoNeb every 4 hours on admission. Regarding pneumonia there is an infiltrate/effusion left lower lobe. White count is only 9.1 but this has doubled since it was checked just yesterday and is one of the higher readings compared to his many blood draws in the recent past. Furthermore his lactate is also 3.8. He was just in the hospital 2 weeks ago therefore we should treat this as a healthcare acquired pneumonia which will necessitate admission. Also because he will be receiving Solu-Medrol his blood sugars will need to be checked frequently and managed aggressively. He voiced understanding and agreement with coming into [facility] to be watched at least overnight. He is currently in improved condition awaiting transfer to the floor. Diabetes. Blood sugar 247 and he will respond be receiving Solu-Medrol. He was given some insulin here in the ER and will be checked 4 times a day with sliding scale. Unfortunately Lantus and Humalog R nonformulary here [facility]. - Medical Records Medical records reviewed: Yes I reviewed the patient's medical records. - Lab Data Lab results reviewed: Yes I reviewed the patient's lab results. Result diagrams: 09/19/16 19:24 09/19/16 19:24 Lab Results 09/19/16 09/19/16 09/19/16 Range/Units 19:24 19:24 19:24 WBC 9.9 D (4.3-11.1) K/mcL RBC 3.51 L (4.19-5.50) M/mcL Hgb 11.2 L (12.9-16.9) g/dL Hct 33.3 L (37.5-50.1) % MCV 94.9 (83.0-100.0) fL MCH 31.9 (28.0-33.3) pg MCHC 33.6 (31.6-35.5) g/dL RDW 16.1 H (11.5-14.5) % Plt Count 163 (140-400) K/mcL MPV 10.1 (9.4-12.4) fL Immature Gran % 0.7 (0-4) % Seg Neutrophils % 84.6 % Lymphocytes % 9.6 % Monocytes % 4.9 % Eosinophils % 0.1 % Basophils % 0.1 % Neutrophils # 8.4 (1.6-8.9) K/mcL Lymphocytes # 1.0 (0.6-4.6) K/mcL Monocytes # 0.5 (0.0-1.3) K/mcL Eosinophils # 0.0 (0.0-0.6) K/mcL Basophils # 0.0 (0.0-0.2) K/mcL VBG Lactic Acid (0.5-2.2) mmol/L Sodium 139 (136-145) mEq/L Potassium 3.7 (3.5-4.5) mEq/L Chloride 88 L (98-109) mEq/L Carbon Dioxide 34 H (19-29) mEq/L BUN 14 (8-26) mg/dL Creatinine 1.19 (0.72-1.25) mg/dL Est GFR ( Amer) > 60 (> 60) Est GFR (Non-Af Amer) > 60 (> 60) BUN/Creatinine Ratio 12 (6-26) Glucose 247 H (70-99) mg/dL Calculated Osmolality 297 (280-300) Calcium 9.5 (8.6-10.8) mg/dL Total Bilirubin 0.6 (0.2-1.2) mg/dL AST 13 (5-34) Units/L ALT 28 (0-55) Units/L Alkaline Phosphatase 65 (38-126) Units/L Troponin I 0.02 (0-0.03) ng/mL B-Natriuretic Peptide (0-100) pg/mL Serum Total Protein 7.1 (6.0-8.3) g/dL Albumin 3.1 L (3.5-5.0) g/dL Globulin 4.0 H (2.4-3.5) g/dL Albumin/Globulin Ratio 0.8 L (1.1-2.2) 09/19/16 09/19/16 Range/Units 19:24 19:24 WBC (4.3-11.1) K/mcL RBC (4.19-5.50) M/mcL Hgb (12.9-16.9) g/dL Hct (37.5-50.1) % MCV (83.0-100.0) fL MCH (28.0-33.3) pg MCHC (31.6-35.5) g/dL RDW (11.5-14.5) % Plt Count (140-400) K/mcL MPV (9.4-12.4) fL Immature Gran % (0-4) % Seg Neutrophils % % Lymphocytes % % Monocytes % % Eosinophils % % Basophils % % Neutrophils # (1.6-8.9) K/mcL Lymphocytes # (0.6-4.6) K/mcL Monocytes # (0.0-1.3) K/mcL Eosinophils # (0.0-0.6) K/mcL Basophils # (0.0-0.2) K/mcL VBG Lactic Acid 3.8 H (0.5-2.2) mmol/L Sodium (136-145) mEq/L Potassium (3.5-4.5) mEq/L Chloride (98-109) mEq/L Carbon Dioxide (19-29) mEq/L BUN (8-26) mg/dL Creatinine (0.72-1.25) mg/dL Est GFR ( Amer) (> 60) Est GFR (Non-Af Amer) (> 60) BUN/Creatinine Ratio (6-26) Glucose (70-99) mg/dL Calculated Osmolality (280-300) Calcium (8.6-10.8) mg/dL Total Bilirubin (0.2-1.2) mg/dL AST (5-34) Units/L ALT (0-55) Units/L Alkaline Phosphatase (38-126) Units/L Troponin I (0-0.03) ng/mL B-Natriuretic Peptide 61 (0-100) pg/mL Serum Total Protein (6.0-8.3) g/dL Albumin (3.5-5.0) g/dL Globulin (2.4-3.5) g/dL Albumin/Globulin Ratio (1.1-2.2) - Radiology Data Radiology results reviewed: Yes I reviewed the patient's radiology results. - EKG Data EKG attestation: Yes I reviewed and interpreted this EKG. EKG results narrative: EKG as interpreted by me sinus tachycardia approximately 110 bpm incomplete right bundle. Left axis deviation. No evidence of hypertrophy. I do not appreciate any ST elevations or depressions. No T-wave abnormalities. I do not appreciate any significant changes from 09/05/2016.
[2016-09-19] MEDS ORDERED: Ipratropium/Albuterol Neb 3 ML IH ONE ×4 (19:02→20:53)
[2016-09-19 19:29] LABS: Basophils % 0.1 %; Eosinophils % 0.1 %; Hematocrit 33.3 % (37.5-50.1); Hemoglobin 11.2 g/dL (12.9-16.9); Immature Granulocytes % 0.7 % (0-4); Lymphocytes % 9.6 %; Mean Corpuscular HGB Conc 33.6 g/dL (31.6-35.5); Mean Corpuscular Hemoglobin 31.9 pg (28.0-33.3); Mean Corpuscular Volume 94.9 fL (83.0-100.0); Mean Platelet Volume 10.1 fL (9.4-12.4); Monocytes # 0.5 K/mcL (0.0-1.3); Monocytes % 4.9 %; Neutrophils # 8.4 K/mcL (1.6-8.9); Platelet Count 163 K/mcL (140-400); Red Blood Count 3.51 M/mcL (4.19-5.50); Red Cell Distribution Width 16.1 % (11.5-14.5); Segmented Neutrophils % 84.6 %
[2016-09-19 19:44] LABS: Alanine Aminotransferase 28 Units/L (0-55); Albumin 3.1 g/dL (3.5-5.0); Albumin/Globulin Ratio 0.8 (1.1-2.2); Alkaline Phosphatase 65 Units/L (38-126); Aspartate Amino Transferase 13 Units/L (5-34); BUN/Creatinine Ratio 12 (6-26); Bilirubin,Total 0.6 mg/dL (0.2-1.2); Blood Urea Nitrogen 14 mg/dL (8-26); Calcium 9.5 mg/dL (8.6-10.8); Carbon Dioxide 34 mEq/L (19-29); Chloride 88 mEq/L (98-109); Glucose 247 mg/dL (70-99); Osmolality,Calculated 297 (280-300); Potassium 3.7 mEq/L (3.5-4.5); Sodium 139 mEq/L (136-145); Total Protein 7.1 g/dL (6.0-8.3); eGFR For African Americans > 60 (> 60); eGFR For Non-African Americans > 60 (> 60)
[2016-09-19] MEDS ORDERED: Insulin Regular, Human 100 UNIT/ML SQ ONE (20:17)
[2016-09-19] MEDS ORDERED: MethylPREDNISolone 40 MG/ML VIAL IVP ONE ×2 (20:18→20:53)
[2016-09-19] MEDS ORDERED: *HR* Enoxaparin 40 MG/0.4 ML SYRINGE SQ ONE (20:39)
[2016-09-19] MEDS ORDERED: Mag Hydrox/Al Hydrox/Simeth 30 ML UDC PO PRN (20:53)
[2016-09-19] MEDS ORDERED: Acetaminophen 325 MG TABLET PO PRN (20:53)
[2016-09-19] MEDS ORDERED: Naloxone 0.4 MG/ML INJ IVP PRN (20:53)
[2016-09-19] MEDS ORDERED: Ondansetron 4 MG/2 ML VIAL IVP PRN (20:53)
[2016-09-19] MEDS ORDERED: Insulin LISPRO 300 UNITS/3 ML VIAL SQ ONE (20:53)
[2016-09-19] MEDS ORDERED: D5 IVPB SCH (21:00)
[2016-09-19] MEDS ORDERED: CEFTAZIDIME IVPB SCH (21:00)
[2016-09-19] MEDS ORDERED: WATER IVPB SCH (21:00)
[2016-09-19] MEDS ORDERED: *HR* FentaNYL PATCH 50 MCG PATCH TD SCH (21:08)
[2016-09-19] MEDS ORDERED: Vancomycin 1,000 MG in D5% in Water 250 ML IVPB ONE ×2 (22:30→23:55)
[2016-09-20] MEDS ORDERED: D5 IVPB SCH
[2016-09-20] MEDS ORDERED: WATER IVPB SCH
[2016-09-20] MEDS ORDERED: CEFTAZIDIME IVPB SCH
[2016-09-20] MEDS: CEFTAZIDIME IVPB SCH ×2 (00:15→08:19)
[2016-09-20] MEDS: D5 IVPB SCH ×2 (00:15→08:19)
[2016-09-20] MEDS: WATER IVPB SCH ×2 (00:15→08:19)
[2016-09-20] MEDS: MethylPREDNISolone 40 MG/ML VIAL IVP SCH ×2 (00:16→08:25)
[2016-09-20] MEDS: Gabapentin 300 MG CAPSULE PO SCH ×2 (00:17→08:19)
[2016-09-20] MEDS: Ipratropium/Albuterol Neb 3 ML IH SCH ×3 (01:10→10:09)
[2016-09-20] MEDS ORDERED: D5% in Water 1,000 ML IVC PRN (02:38)
[2016-09-20] MEDS ORDERED: *HR* Dextrose 50 % in Water (Syg) 50 ML SYRINGE IVP PRN (02:38)
[2016-09-20] MEDS ORDERED: Dextrose Gel 15 GM PO PRN ×2 (02:38)
[2016-09-20] MEDS ORDERED: Vancomycin (wt based) 1,000 MG VIAL IV SCH (06:00)
[2016-09-20] MEDS ORDERED: *HR* Enoxaparin 40 MG/0.4 ML SYRINGE SQ SCH (07:00)
[2016-09-20] MEDS: Insulin LISPRO 300 UNITS/3 ML VIAL SQ SCH ×2 (08:17→12:15)
[2016-09-20 08:42] LABS: Hematocrit 30.1 % (37.5-50.1); Hemoglobin 9.9 g/dL (12.9-16.9); Immature Granulocytes % 0.6 % (0-4); Lymphocytes # 0.5 K/mcL (0.6-4.6); Mean Corpuscular HGB Conc 32.9 g/dL (31.6-35.5); Mean Corpuscular Hemoglobin 31.2 pg (28.0-33.3); Mean Platelet Volume 10.3 fL (9.4-12.4); Monocytes # 0.1 K/mcL (0.0-1.3); Monocytes % 1.7 %; Neutrophils # 4.2 K/mcL (1.6-8.9); Platelet Count 139 K/mcL (140-400); Red Blood Count 3.17 M/mcL (4.19-5.50); Red Cell Distribution Width 15.8 % (11.5-14.5); Segmented Neutrophils % 87.7 %
[2016-09-20] MEDS ORDERED: Insulin DETEMIR 100 UNIT/ML per UNIT SQ ONE (08:45)
[2016-09-20] MEDS ORDERED: Furosemide 40 MG TABLET PO SCH (09:00)
[2016-09-20] MEDS ORDERED: Aspirin Enteric Coated 81 MG Tablet PO SCH (09:00)
[2016-09-20] MEDS ORDERED: *HR* SitaGLIPtin 100 MG TABLET PO SCH (09:00)
[2016-09-20] MEDS ORDERED: Insulin DETEMIR 100 UNIT/ML per UNIT SQ SCH (09:00)
[2016-09-20 11:40] VITALS: BP 154/66
--- NOTE | 2016-09-20 12:53 | Internal Med History&Physical ---
Date of Encounter: 09/20/16 Time of Encounter: 12:51 Assessment and Plan (1) Acute exacerbation of chronic obstructive airways disease Current visit: Yes Status: Chronic Stable at this time. Once to go home. He has all his home medications and oxygen and DuoNeb treatment Internal Medicine - H&P: HPI History of present illness: Mr. Joseph is a 71 year old male admitted through the ED last night for has had a productive cough for the last 3-4 days. No fever no chills. He woke up today especially short of breath and dizzy and lightheaded. He had some vision issues as well and was having trouble maintaining his balance. No nausea vomiting or diarrhea. No muscle aches. He does have a cardiac history but denies any chest pain or palpitations diaphoresis. He was in the hospital for similar symptoms about 2 weeks ago. This was for a COPD exacerbation. He feels similarly today. He is on home oxygen typically at 3 L. Unfortunately continues to smoke. Past medical history is also significant for multiple myeloma. He was recently seen by his oncologist. This morning he states that he feels better and wants to go home. He has no cough. Past Med Surg Social Fam HX - Past Medical History Medical history: cancer, CHF, COPD, coronary artery disease, diabetes, GERD, hyperlipidemia, myocardial infarction, thyroid disease Psychiatric history: depression - Past Surgical History Surgical History: angioplasty/stent, orthopedic, other - Social History Smoking Status: Current every day smoker Packs per day: 0.5 Smokeless Tobacco Status: No Alcohol use: none Drug use: none - Family History Father Family Member Ethnicity: Non- Living Status: Hx Family Cardiac Disorders: Yes Mother Living Status: Hx Family Cardiac Disorders: Yes Hx Family Respiratory Disorders: Yes (COPD) Hx Family Cancer: Yes (Lung cancer) Hx Family GI Disorders: No Hx Family Endocrine Disorder: Yes (DM, Thyroid) Hx Family Neuromuscular Disorders: No Hx Family Neurologic Disorders: No Hx Family HEENT Disorders: No Hx Family Autoimmune Disorders: No Internal Medicine - H&P: Meds Levothyroxine [Synthroid] 175 mcg PO DAILY 09/06/15 [History] Aspirin [Adult Low Dose Aspirin EC] 81 mg PO DAILY 09/13/15 [History] Simvastatin [Zocor] 40 mg PO HS 09/13/15 [History] Ondansetron [Zofran] 8 mg PO BID #60 tablet 11/01/15 [Rx] Gabapentin [Neurontin] 300 mg PO TID 02/11/16 [History] SitaGLIPtin [Januvia] 100 mg PO DAILY 02/11/16 [History] Insulin Glargine,Hum.rec.anlog [Lantus Solostar] 75 unit SQ BID 05/11/16 [ History] Insulin LISPRO [Humalog Kwikpen U-100] 45 - 55 unit SQ TIDWM 05/11/16 [History] Montelukast [Singulair] 10 mg PO DAILY 05/11/16 [History] Potassium Chloride [K-Tab ER] 40 meq PO Q48H 05/11/16 [History] Propranolol HCl 40 mg PO BID #60 tablet 06/11/16 [Rx] ClonazePAM [Klonopin] 0.25 mg PO BID PRN #7 tablet 07/03/16 [Rx] Gentamicin Oint [Garamycin] 1 appl TP DAILY #1 tube 07/03/16 [Rx] Guaifenesin [Guaifenesin ER] 1,200 mg PO BID PRN #40 tab.er.12h 07/03/16 [Rx] Furosemide [Lasix] 40 mg PO BID 08/24/16 [History] Ipratropium/Albuterol Neb [Duoneb] 3 ml IH Q4HR 08/24/16 [History] Metolazone [Zaroxolyn] 5 mg PO DAILY 08/24/16 [History] Primidone [Mysoline] 50 mg PO BID 08/24/16 [History] Fentanyl [Duragesic] 75 mcg TD Q72H PRN 09/05/16 [History] Lansoprazole [Prevacid] 30 mg PO DAILY 09/05/16 [History] Pomalidomide [Pomalyst] 2 mg PO DAILY #21 capsule 09/15/16 [Rx] FentaNYL PATCH [Duragesic] 50 mcg TD Q72H #10 patch.td72 09/16/16 [Rx] Allergies No Known Allergies Allergy (Verified 09/19/16 20:59) All Systems PM: A 10-system review of systems was performed and is negative for pertinent findings except as documented above in the HPI. - Constitutional Constitutional: no chills, no fever(s), no night sweats - Cardiovascular Cardiovascular ROS IM: no chest pain, no diaphoresis, no dyspnea, no lightheadedness, no palpitations, no syncope - Respiratory Respiratory: no cough, no dyspnea, no wheezing, no excessive phlegm production - Gastrointestinal Gastrointestinal: no abdominal pain, no diarrhea, no hematemesis, no hematochezia, no melena, no nausea, no vomiting - Constitutional Vitals: Temp Pulse Resp BP Pulse Ox 97.5 F L 74 18 154/66 94 09/20/16 11:39 09/20/16 11:39 09/20/16 11:39 09/20/16 11:39 09/20/16 11:39 General appearance: Present: A&O X 3, pleasant, no acute distress - Respiratory Respiratory exam: Present: CTAB. Absent: accessory muscle use, rales, rhonchi, wheezes - Cardiovascular Cardiovascular exam: Present: RRR, +S1, +S2. Absent: diastolic murmur, gallop, rubs, systolic murmur - GI/Abdominal GI/Abdominal exam: Present: normal bowel sounds, soft, no peritoneal signs. Absent: distended, tenderness - Extremities Exam Extremities exam: Present: warm, radial pulses palpable and symetrical. Absent : calf tenderness, cyanotic, pedal edema Internal Med - H&P Results - Labs CBC & Chem 7: 09/20/16 07:30 09/19/16 19:24 Labs: Short CBC 09/20/16 Range/Units 07:30 WBC 4.8 D (4.3-11.1) K/mcL Hgb 9.9 L (12.9-16.9) g/dL Hct 30.1 L (37.5-50.1) % Plt Count 139 L (140-400) K/mcL Neutrophils # 4.2 (1.6-8.9) K/mcL Cardiac Enzymes 09/20/16 09/20/16 Range/Units 01:30 07:30 Troponin I 0.01 0.01 (0-0.03) ng/mL - VTE Documentation of Mechanical Device: Graduated compression elastic hosiery
--- NOTE | 2016-09-20 12:58 | Discharge Summary ---
Date of Encounter: 09/20/16 Time of Encounter: 12:53 - Discharge Diagnosis (1) Acute exacerbation of chronic obstructive airways disease Priority: Primary Status: Chronic - Discharge Medications Prescriptions: Gentamicin Oint [Garamycin] 1 appl TP DAILY #1 tube Home Medications: Levothyroxine [Synthroid] 175 mcg PO DAILY 09/06/15 [History] Aspirin [Adult Low Dose Aspirin EC] 81 mg PO DAILY 09/13/15 [History] Simvastatin [Zocor] 40 mg PO HS 09/13/15 [History] Ondansetron [Zofran] 8 mg PO BID #60 tablet 11/01/15 [Rx] Gabapentin [Neurontin] 300 mg PO TID 02/11/16 [History] SitaGLIPtin [Januvia] 100 mg PO DAILY 02/11/16 [History] Insulin Glargine,Hum.rec.anlog [Lantus Solostar] 75 unit SQ BID 05/11/16 [ History] Insulin LISPRO [Humalog Kwikpen U-100] 45 - 55 unit SQ TIDWM 05/11/16 [History] Montelukast [Singulair] 10 mg PO DAILY 05/11/16 [History] Potassium Chloride [K-Tab ER] 40 meq PO Q48H 05/11/16 [History] Propranolol HCl 40 mg PO BID #60 tablet 06/11/16 [Rx] ClonazePAM [Klonopin] 0.25 mg PO BID PRN #7 tablet 07/03/16 [Rx] Guaifenesin [Guaifenesin ER] 1,200 mg PO BID PRN #40 tab.er.12h 07/03/16 [Rx] Furosemide [Lasix] 40 mg PO BID 08/24/16 [History] Ipratropium/Albuterol Neb [Duoneb] 3 ml IH Q4HR 08/24/16 [History] Metolazone [Zaroxolyn] 5 mg PO DAILY 08/24/16 [History] Primidone [Mysoline] 50 mg PO BID 08/24/16 [History] Fentanyl [Duragesic] 75 mcg TD Q72H PRN 09/05/16 [History] Lansoprazole [Prevacid] 30 mg PO DAILY 09/05/16 [History] Pomalidomide [Pomalyst] 2 mg PO DAILY #21 capsule 09/15/16 [Rx] FentaNYL PATCH [Duragesic] 50 mcg TD Q72H #10 patch.td72 09/16/16 [Rx] Gentamicin Oint [Garamycin] 1 appl TP DAILY #1 tube 09/20/16 [Rx] Allergies/Adverse Reactions: Allergies No Known Allergies Allergy (Verified 09/19/16 20:59) Date of admission: 09/19/16 20:37 Primary care physician: PCP NO Discharging clinician: [facility] Plummer Anticipated date of discharge: 09/20/16 - Patient Status Disposition: Home, Self-Care Condition: Fair Functional capacity at discharge: independent ambulation Overall status at discharge: patient is back to baseline - Discharge Instructions Follow Up With: NO,PCP [Primary Care Provider] - - Diet and Activity Activity: increase activity as tolerated Diet: advance to your usual diet Hospital course: Mr. Joseph is a 71 year old male admitted through the ED forMrBrady Delaney has had a productive cough for the last 3-4 days. No fever no chills. He woke up today especially short of breath and dizzy and lightheaded. He had some vision issues as well and was having trouble maintaining his balance. No nausea vomiting or diarrhea. No muscle aches. He does have a cardiac history but denies any chest pain or palpitations diaphoresis. He was in the hospital for similar symptoms about 2 weeks ago. This was for a COPD exacerbation. He feels similarly today. He is on home oxygen typically at 3 L. Unfortunately continues to smoke. Past medical history is also significant for multiple myeloma. He was recently seen by his oncologist. He was admitted for close observation and continuation of pulmonary treatment. He was given IV antibiotics. On the morning of discharge he states that he is feeling much better and wants to go home. Time spent discussing smoking cessation with patient: 3 to 10 minutes - Time Spent with Patient Total time spent providing and/or coordinating discharge services: - Constitutional Vitals: Temp Pulse Resp BP Pulse Ox 97.5 F L 74 18 154/66 94 09/20/16 11:39 09/20/16 11:39 09/20/16 11:39 09/20/16 11:39 09/20/16 11:39 General appearance: Present: A&O X 3, pleasant, no acute distress - Respiratory Respiratory exam: Present: CTAB. Absent: accessory muscle use, rales, rhonchi, wheezes - Cardiovascular Cardiovascular exam: Present: RRR, +S1, +S2. Absent: diastolic murmur, gallop, rubs, systolic murmur - GI/Abdominal GI/Abdominal exam: Present: normal bowel sounds, soft, no peritoneal signs. Absent: distended, tenderness - Extremities Exam Extremities exam: Present: warm, radial pulses palpable and symetrical. Absent : calf tenderness, cyanotic, pedal edema - Neurological Exam Neurological exam: Present: CN II-XII intact, oriented X3, no focal deficits. Absent: pronater drift, facial droop, speech deficit - VTE Documentation of Mechanical Device: Graduated compression elastic hosiery
[2016-09-20] MEDS ORDERED: Aminoglycoside Consult 1 EACH MC ONE (13:55)
[2016-09-20] MEDS ORDERED: Insulin LISPRO 300 UNITS/3 ML VIAL SQ SCH (21:00)
[2016-09-20] MEDS ORDERED: Vancomycin 2,000 MG in D5% in Water 500 ML IVPB SCH (22:00)
--- NOTE | 2016-09-21 21:27 | Electrocardiograph Report ---
[address] [address] Test Date: 2016-09-19 Pat Name: Olman Joseph Department: 2000 Room: 112 Gender: M [employer] Worker: : 1945 Requested By: Santos Suárez Order Number: [id number] Reading MD: Victor M Li MD Measurements Intervals [place] Rate: 111 P: 90 SD: 146 QRS: -88 QRSD: 93 T: 73 QT: 327 QTc: 393 Interpretive Statements SINUS TACHYCARDIA MARKED LEFT AXIS DEVIATION Poor R wave progression BASELINE ARTIFACT COMPLICATES ACCURATE INTERPRETATION Electronically Signed On 09-21-2016 21:25:17 EDT by Victor M Li MD
== END 2016-09-20 13:56 | disposition home or self-care (01) ==
LOC: EMEROOGRE 18:46 → INPGRE 18:46
PROVIDERS: ADMIT Internal Medicine; ATTEND Internal Medicine

== ENCOUNTER 2017-02-27 08:47 | Inpatient (IN) ==
[2017-02-28] MEDS ORDERED: clonazePAM 0.5 MG TABLET PO PRN (19:37)
[2017-02-28] MEDS ORDERED: Ondansetron ODT 4 MG TAB.RAPDIS PO PRN (19:37)
[2017-02-28] MEDS ORDERED: risperiDONE 0.25 MG TABLET PO PRN (19:37)
[2017-02-28] MEDS: Gabapentin 300 MG CAPSULE PO SCH (22:34)
[2017-02-28] MEDS: Acyclovir 200 MG CAPSULE PO SCH (22:34)
[2017-02-28] MEDS: Primidone 50 MG TABLET PO SCH (22:34)
[2017-02-28] MEDS: Insulin LISPRO 300 UNITS/3 ML VIAL SQ SCH (22:42)
[2017-02-28] MEDS: Insulin DETEMIR 100 UNIT/ML per UNIT SQ SCH (22:45)
[2017-02-28] MEDS: *HR* OxyCODONE Immed Rel 5 MG TABLET PO PRN (23:40)
[2017-02-28] MEDS: Budesonide/Formoterol 160/4.5 MDI IH SCH (23:43)
[2017-03-01] MEDS: Sennosides 8.6 MG TABLET PO PRN (05:45)
[2017-03-01] MEDS: *HR* Enoxaparin 40 MG/0.4 ML SYRINGE SQ SCH (05:45)
[2017-03-01] MEDS: *HR* OxyCODONE Immed Rel 5 MG TABLET PO PRN ×2 (05:45→19:13)
[2017-03-01 06:27] LABS: Hematocrit 20.7 % (37.5-50.1); Hemoglobin 6.9 g/dL (12.9-16.9); Immature Granulocytes % 1.2 % (0-4); Lymphocytes # 0.4 K/mcL (0.6-4.6); Lymphocytes % 14.7 %; Mean Corpuscular HGB Conc 33.3 g/dL (31.6-35.5); Mean Corpuscular Hemoglobin 30.5 pg (28.0-33.3); Mean Corpuscular Volume 91.6 fL (83.0-100.0); Mean Platelet Volume 10.5 fL (9.4-12.4); Monocytes # 0.1 K/mcL (0.0-1.3); Monocytes % 5.3 %; Red Blood Count 2.26 M/mcL (4.19-5.50); Red Cell Distribution Width 14.1 % (11.5-14.5); Segmented Neutrophils % 78.8 %
[2017-03-01 06:28] LABS: INR 1.4; Platelet Count 76 K/mcL (140-400); Prothrombin Time 14.9 Seconds (9.4-12.1)
[2017-03-01 06:46] LABS: BUN/Creatinine Ratio 19 (6-26); Blood Urea Nitrogen 14 mg/dL (8-26); Calcium 8.8 mg/dL (8.6-10.8); Carbon Dioxide 23 mEq/L (19-29); Chloride 103 mEq/L (98-109); Glucose 205 mg/dL (70-99); Osmolality,Calculated 286 (280-300); Potassium 4.1 mEq/L (3.5-4.5); Sodium 135 mEq/L (136-145); eGFR For African Americans > 60 (> 60); eGFR For Non-African Americans > 60 (> 60)
[2017-03-01] MEDS: Primidone 50 MG TABLET PO SCH ×2 (08:58→20:56)
[2017-03-01] MEDS: Aspirin Enteric Coated 81 MG Tablet PO SCH (08:59)
[2017-03-01] MEDS: *HR* SitaGLIPtin 100 MG TABLET PO SCH (08:59)
[2017-03-01] MEDS: Acyclovir 200 MG CAPSULE PO SCH ×2 (08:59→20:56)
[2017-03-01] MEDS: Gabapentin 300 MG CAPSULE PO SCH ×2 (08:59→20:56)
[2017-03-01] MEDS: Folic Acid 1 MG TABLET PO SCH (08:59)
[2017-03-01] MEDS: Budesonide/Formoterol 160/4.5 MDI IH SCH ×2 (09:01→20:57)
[2017-03-01] MEDS: Insulin LISPRO 300 UNITS/3 ML VIAL SQ SCH ×4 (09:01→21:00)
[2017-03-01] MEDS: (Roflumilast [Daliresp] 500 MCG) PO SCH (11:17)
--- NOTE | 2017-03-01 14:27 | Internal Med History&Physical ---
Date of Encounter: 03/01/17 Time of Encounter: 14:22 Internal Medicine - H&P: HPI Chief complaint: Patient had renal failure patient fell and had a fracture of his clavicle a Admitted From: Hospital to Hospital Transfer Plans for Post Hospital Care: Home History of present illness: Mr. Joseph is a 71 year old male Past Med Surg Social Fam HX - Past Medical History Medical history: cancer, CHF, COPD, coronary artery disease, diabetes, GERD, hyperlipidemia, myocardial infarction, thyroid disease, other Psychiatric history: depression - Past Surgical History Surgical History: angioplasty/stent, orthopedic, other - Social History Smoking Status: Current every day smoker Smokeless Tobacco Status: No Alcohol use: none Drug use: none - Family History Father Family Member Ethnicity: Non- Living Status: Hx Family Cardiac Disorders: Yes Mother Living Status: Hx Family Cardiac Disorders: Yes Hx Family Respiratory Disorders: Yes (COPD) Hx Family Cancer: Yes (Lung cancer) Hx Family GI Disorders: No Hx Family Endocrine Disorder: Yes (DM, Thyroid) Hx Family Neuromuscular Disorders: No Hx Family Neurologic Disorders: No Hx Family HEENT Disorders: No Hx Family Autoimmune Disorders: No Internal Medicine - H&P: Meds Levothyroxine [Synthroid] 175 mcg PO DAILY 09/06/15 [History] Aspirin [Adult Low Dose Aspirin EC] 81 mg PO DAILY 09/13/15 [History] Primidone [Mysoline] 50 mg PO BID 08/24/16 [History] Lansoprazole [Prevacid] 30 mg PO DAILY 09/05/16 [History] Sennosides [Senna] 8.6 mg PO BID PRN 11/02/16 [History] Polyethylene Glycol 3350 [MiraLAX bowel prep] 17 gm PO DAILY PRN 11/03/16 [ History] Budesonide/Formoterol 160/4.5 [Symbicort 160/4.5] 2 puff IH BIDR #5 hfa.aer.ad 11/05/16 [Rx] SitaGLIPtin [Januvia] 100 mg PO DAILY 11/30/16 [History] Acyclovir [Zovirax] 400 mg PO BID #60 tablet 12/28/16 [Rx] Ondansetron HCl [Zofran] 4 mg PO TID PRN #90 tablet 12/28/16 [Rx] Citalopram Hydrobromide [Celexa] 20 mg PO DAILY #30 tab 01/18/17 [Rx] Fentanyl [Duragesic] 100 mcg TD Q72H #10 patch.td72 01/18/17 [Rx] Roflumilast [Daliresp] 500 mcg PO DAILY 02/23/17 [History] Dexamethasone [Decadron] 10 mg PO QID tablet 02/28/17 [Rx] FentaNYL PATCH [Duragesic] 25 mcg TD Q72H #10 patch.td72 02/28/17 [Rx] Folic Acid 1 mg PO DAILY tablet 02/28/17 [Rx] Gabapentin [Neurontin] 300 mg PO BID #30 capsule 02/28/17 [Rx] Insulin DETEMIR [Levemir] 10 unit SQ HS [id number] 02/28/17 [Rx] Insulin LISPRO [HumaLOG] 0 units SQ HS vial 02/28/17 [Rx] Insulin LISPRO [HumaLOG] 0 units SQ TIDAC vial 02/28/17 [Rx] OxyCODONE Immed Rel [Roxicodone 5 MG] 5 mg PO BID PRN #14 tablet 02/28/17 [Rx] clonazePAM [Klonopin] 0.5 mg PO BID PRN #14 tablet 02/28/17 [Rx] risperiDONE [RisperDAL] 0.25 mg PO HS PRN #10 tablet 02/28/17 [Rx] 3 Allergy/AdvReac Type Severity Reaction Status Date / Time No Known Allergies Allergy Verified 11/30/16 12:12 All Systems PM: A 10-system review of systems was performed and is negative for pertinent findings except as documented above in the HPI. - Constitutional Vitals: Temp Pulse Resp BP Pulse Ox 98.4 F 71 18 121/70 98 03/01/17 11:00 03/01/17 11:05 03/01/17 11:05 03/01/17 11:05 03/01/17 11:05 - Head Head exam: Present: atraumatic, normal inspection, normocephalic - Neck Neck exam general surgery: Present: supple, trachea midline. Absent: lymphadenopathy - Respiratory Respiratory exam: Present: CTAB. Absent: accessory muscle use, rales, rhonchi, wheezes - Cardiovascular Cardiovascular exam: Present: RRR, +S1, +S2. Absent: diastolic murmur, gallop, rubs, systolic murmur - GI/Abdominal GI/Abdominal exam: Present: normal bowel sounds, soft, no peritoneal signs. Absent: distended, tenderness - Extremities Exam Extremities exam: Present: warm, radial pulses palpable and symmetrical. Absent : calf tenderness (Patient wearing a sling since he fractured his clavicle during a fall with a pre-existing lytic lesion), cyanotic, pedal edema Internal Med - H&P Results - Labs CBC & Chem 7: 03/01/17 06:18 03/01/17 06:18 Labs: Lab is stable Short CBC 03/01/17 Range/Units 06:18 WBC 2.5 L (4.3-11.1) K/mcL Hgb 6.9 L (12.9-16.9) g/dL Hct 20.7 L (37.5-50.1) % Plt Count 76 L (140-400) K/mcL Neutrophils # 2.0 (1.6-8.9) K/mcL BMP 03/01/17 Laboratory data 06:18 Sodium 135 L Potassium 4.1 Chloride 103 Carbon Dioxide 23 Labwork stable lab is stable BUN 14 Creatinine 0.75 Glucose 205 H Calcium 8.8
[2017-03-01] MEDS: Insulin DETEMIR 100 UNIT/ML per UNIT SQ SCH (21:07)
[2017-03-02] MEDS: *HR* Enoxaparin 40 MG/0.4 ML SYRINGE SQ SCH (05:27)
[2017-03-02] MEDS: *HR* OxyCODONE Immed Rel 5 MG TABLET PO PRN ×2 (05:32→23:20)
[2017-03-02] MEDS: Budesonide/Formoterol 160/4.5 MDI IH SCH ×2 (09:35→23:24)
[2017-03-02] MEDS: Insulin LISPRO 300 UNITS/3 ML VIAL SQ SCH ×4 (09:35→23:23)
[2017-03-02] MEDS: Aspirin Enteric Coated 81 MG Tablet PO SCH (09:41)
[2017-03-02] MEDS: Folic Acid 1 MG TABLET PO SCH (09:41)
[2017-03-02] MEDS: Acyclovir 200 MG CAPSULE PO SCH ×2 (09:41→23:21)
[2017-03-02] MEDS: Primidone 50 MG TABLET PO SCH ×2 (09:42→23:21)
[2017-03-02] MEDS: Gabapentin 300 MG CAPSULE PO SCH ×2 (09:43→23:19)
[2017-03-02] MEDS: *HR* SitaGLIPtin 100 MG TABLET PO SCH (09:43)
[2017-03-02] MEDS: (Roflumilast [Daliresp] 500 MCG) PO SCH (10:41)
[2017-03-02] MEDS: *HR* FentaNYL PATCH 25 MCG PATCH TD SCH (12:29)
[2017-03-02] MEDS: Sennosides 8.6 MG TABLET PO PRN (23:20)
[2017-03-02] MEDS: Insulin DETEMIR 100 UNIT/ML per UNIT SQ SCH (23:24)
[2017-03-03] MEDS: *HR* Enoxaparin 40 MG/0.4 ML SYRINGE SQ SCH (06:44)
[2017-03-03] MEDS: Insulin LISPRO 300 UNITS/3 ML VIAL SQ SCH ×4 (08:43→22:12)
[2017-03-03] MEDS: Primidone 50 MG TABLET PO SCH ×2 (08:43→22:13)
[2017-03-03] MEDS: Gabapentin 300 MG CAPSULE PO SCH ×2 (08:44→22:17)
[2017-03-03] MEDS: *HR* SitaGLIPtin 100 MG TABLET PO SCH (08:44)
[2017-03-03] MEDS: Folic Acid 1 MG TABLET PO SCH (08:44)
[2017-03-03] MEDS: Aspirin Enteric Coated 81 MG Tablet PO SCH (08:45)
[2017-03-03] MEDS: Acyclovir 200 MG CAPSULE PO SCH ×2 (08:45→22:14)
[2017-03-03] MEDS: (Roflumilast [Daliresp] 500 MCG) PO SCH (08:46)
[2017-03-03] MEDS: Budesonide/Formoterol 160/4.5 MDI IH SCH ×2 (09:55→22:13)
--- NOTE | 2017-03-03 14:08 | Internal Med Progress Note ---
Date of Encounter: 03/02/17 Time of Encounter: 14:07 - Assessment and plan (1) Multiple myeloma Current Visit: No Status: Chronic Assessment and plan: Patient has multiple myeloma and had a lytic lesion in his clavicle. 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 Assessment and plan: Patient does have some bone pain and this has not pain where he fell but he states it is okay (3) Community acquired pneumonia Current Visit: Yes Status: Acute Assessment and plan: Patient's initial presentation to the hospital acutely was for community- acquired pneumonia Qualifiers: Qualified Code(s): J18.9 - Pneumonia, unspecified organism - Time Spent With Patient less than 15 minutes - Constitutional Vitals: Temp Pulse Resp BP Pulse Ox 98.0 F 64 18 133/58 99 03/03/17 07:00 03/03/17 07:00 03/03/17 07:00 03/03/17 07:00 03/03/17 07:00 - Head Head exam: Present: atraumatic, normal inspection, normocephalic - Neck Neck exam general surgery: Present: supple, trachea midline. Absent: lymphadenopathy - Respiratory Respiratory exam: Present: CTAB. Absent: accessory muscle use, rales, rhonchi, wheezes - Cardiovascular Cardiovascular exam: Present: RRR, +S1, +S2. Absent: diastolic murmur, gallop, rubs, systolic murmur Internal Medicine: Result - Labs CBC & Chem 7: 03/01/17 06:18 03/01/17 06:18 Labs: Patient has known multiple myeloma. - ABG Interpretation ABG results: PT/INR, D-dimer PT 14.9 Seconds (9.4-12.1) H 03/01/17 06:18 Consult Discharge Plan - Plan Referrals: Babatunde Maldonado [employer] CAPTAIN [Primary Care Provider] -
--- NOTE | 2017-03-03 14:16 | Internal Med Progress Note ---
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 Qualifiers: Qualified Code(s): J18.9 - Pneumonia, unspecified organism - Time Spent With Patient less than 15 minutes - Subjective Interval history: Patient is anemic slightly weak 69 hemoglobin. This will be addressed with 2 units of packed cells. Patient was confused before when he was in the hospital for his pneumonia and actually pulled out the catheter had some traumatic injury to urethra - Constitutional Vitals: Temp Pulse Resp BP Pulse Ox 98.0 F 64 18 133/58 99 03/03/17 07:00 03/03/17 07:00 03/03/17 07:00 03/03/17 07:00 03/03/17 07:00 - Head Head exam: Present: atraumatic, normal inspection, normocephalic - Neck Neck exam general surgery: Present: supple, trachea midline. Absent: lymphadenopathy - Respiratory Respiratory exam: Present: CTAB. Absent: accessory muscle use, rales, rhonchi, wheezes - Cardiovascular Cardiovascular exam: Present: RRR, +S1, +S2. Absent: diastolic murmur, gallop, rubs, systolic murmur Internal Medicine: Result - Labs CBC & Chem 7: 03/01/17 06:18 03/01/17 06:18 Labs: Patient has history of multiple myeloma. - ABG Interpretation ABG results: PT/INR, D-dimer PT 14.9 Seconds (9.4-12.1) H 03/01/17 06:18 Consult Discharge Plan - Plan Referrals: Babatunde Maldonado, [employer] RECEPTIONIST [Primary Care Provider] -
[2017-03-03] MEDS: *HR* OxyCODONE Immed Rel 5 MG TABLET PO PRN (14:32)
--- NOTE | 2017-03-03 15:00 | Psychological Evaluation ---
Date of Encounter: 03/03/17 Time of Encounter: 10:45 History of Present Illness History of present illness: Mr. Joseph is a 71 year old male admitted after a all which resulted in fracture of his clavicle. Past Medical History Medical history: cancer, CHF, COPD, CAD, DM, GERD, HCL, [place], thyroid - Psychiatric History Psychiatric history: Reports: no psych history Home Medications and Allergies Levothyroxine [Synthroid] 175 mcg PO DAILY 09/06/15 [History] Aspirin [Adult Low Dose Aspirin EC] 81 mg PO DAILY 09/13/15 [History] Primidone [Mysoline] 50 mg PO BID 08/24/16 [History] Lansoprazole [Prevacid] 30 mg PO DAILY 09/05/16 [History] Sennosides [Senna] 8.6 mg PO BID PRN 11/02/16 [History] Polyethylene Glycol 3350 [MiraLAX bowel prep] 17 gm PO DAILY PRN 11/03/16 [ History] Budesonide/Formoterol 160/4.5 [Symbicort 160/4.5] 2 puff IH BIDR #5 hfa.aer.ad 11/05/16 [Rx] SitaGLIPtin [Januvia] 100 mg PO DAILY 11/30/16 [History] Acyclovir [Zovirax] 400 mg PO BID #60 tablet 12/28/16 [Rx] Ondansetron HCl [Zofran] 4 mg PO TID PRN #90 tablet 12/28/16 [Rx] Citalopram Hydrobromide [Celexa] 20 mg PO DAILY #30 tab 01/18/17 [Rx] Fentanyl [Duragesic] 100 mcg TD Q72H #10 patch.td72 01/18/17 [Rx] Roflumilast [Daliresp] 500 mcg PO DAILY 02/23/17 [History] Dexamethasone [Decadron] 10 mg PO QID tablet 02/28/17 [Rx] FentaNYL PATCH [Duragesic] 25 mcg TD Q72H #10 patch.td72 02/28/17 [Rx] Folic Acid 1 mg PO DAILY tablet 02/28/17 [Rx] Gabapentin [Neurontin] 300 mg PO BID #30 capsule 02/28/17 [Rx] Insulin DETEMIR [Levemir] 10 unit SQ HS [id number] 02/28/17 [Rx] Insulin LISPRO [HumaLOG] 0 units SQ HS vial 02/28/17 [Rx] Insulin LISPRO [HumaLOG] 0 units SQ TIDAC vial 02/28/17 [Rx] OxyCODONE Immed Rel [Roxicodone 5 MG] 5 mg PO BID PRN #14 tablet 02/28/17 [Rx] clonazePAM [Klonopin] 0.5 mg PO BID PRN #14 tablet 02/28/17 [Rx] risperiDONE [RisperDAL] 0.25 mg PO HS PRN #10 tablet 02/28/17 [Rx] 3 Allergy/AdvReac Type Severity Reaction Status Date / Time No Known Allergies Allergy Verified 11/30/16 12:12 Social History - Tobacco Use Smoking Status: Current every day smoker - Alcohol Use Alcohol Use: unknown Cognitive/Emotional Assessment - Cognitive Ability Additional Findings: Patient was not fully oriented to month, date. Attention was poor. Patient was able to provide recent medical history. Assessment & Plan - Prognosis Prognosis: Fair (Pain, cancer diagnosis, fatigue interfere with rehab. potential.) Procedures - Intervention Interventions: Other (Fatigue must be accounted for during therapy sessions.)
[2017-03-03] MEDS ORDERED: Ipratropium/Albuterol Neb 3 ML IH PRN (20:09)
[2017-03-03] MEDS ORDERED: D5% in Water 1,000 ML IVC PRN (20:10)
[2017-03-03] MEDS ORDERED: Dextrose Gel 15 GM PO PRN ×2 (20:10)
[2017-03-03] MEDS ORDERED: *HR* Dextrose 50 % in Water (Syg) 50 ML SYRINGE IVP PRN (20:10)
[2017-03-03] MEDS: Insulin DETEMIR 100 UNIT/ML per UNIT SQ SCH (22:13)
[2017-03-03] MEDS: Sennosides 8.6 MG TABLET PO PRN (22:15)
[2017-03-04] MEDS ORDERED: 0.9 % Sodium Chloride 250 ML ONE ×2 (01:35→05:13)
[2017-03-04] MEDS: Acyclovir 200 MG CAPSULE PO SCH ×2 (08:43→21:00)
[2017-03-04] MEDS: Gabapentin 300 MG CAPSULE PO SCH ×2 (08:43→20:59)
[2017-03-04] MEDS: Primidone 50 MG TABLET PO SCH ×2 (08:43→20:59)
[2017-03-04] MEDS: Aspirin Enteric Coated 81 MG Tablet PO SCH (08:43)
[2017-03-04] MEDS: (Roflumilast [Daliresp] 500 MCG) PO SCH (08:44)
[2017-03-04] MEDS: Folic Acid 1 MG TABLET PO SCH (08:44)
[2017-03-04] MEDS: *HR* SitaGLIPtin 100 MG TABLET PO SCH (08:44)
[2017-03-04] MEDS: Budesonide/Formoterol 160/4.5 MDI IH SCH ×2 (08:46→21:09)
[2017-03-04] MEDS: Insulin LISPRO 300 UNITS/3 ML VIAL SQ SCH ×4 (08:47→21:02)
[2017-03-04 11:20] LABS: Hematocrit 27.4 % (37.5-50.1); Hemoglobin 9.2 g/dL (12.9-16.9); Immature Granulocytes % 1.9 % (0-4); Lymphocytes # 0.3 K/mcL (0.6-4.6); Lymphocytes % 5.8 %; Mean Corpuscular HGB Conc 33.6 g/dL (31.6-35.5); Mean Corpuscular Hemoglobin 30.3 pg (28.0-33.3); Mean Corpuscular Volume 90.1 fL (83.0-100.0); Mean Platelet Volume 11.4 fL (9.4-12.4); Monocytes # 0.3 K/mcL (0.0-1.3); Monocytes % 5.4 %; Neutrophils # 4.2 K/mcL (1.6-8.9); Platelet Count 106 K/mcL (140-400); Red Blood Count 3.04 M/mcL (4.19-5.50); Red Cell Distribution Width 14.7 % (11.5-14.5); Segmented Neutrophils % 86.9 %
[2017-03-04] MEDS: *HR* OxyCODONE Immed Rel 5 MG TABLET PO PRN (13:58)
--- NOTE | 2017-03-04 20:23 | Internal Med Progress Note ---
Date of Encounter: 03/04/17 Time of Encounter: 20:21 - Assessment and plan (1) Multiple myeloma Current Visit: Yes Status: Acute Assessment and plan: on chemo treatment . Admitted for rehab and Blood transfusion He is stable at the present time his H/H is 9.2 after two units of packed blood Qualifiers: Multiple myeloma remission status: unspecified Qualified Code(s): C90.00 - Multiple myeloma not having achieved remission (2) COPD (chronic obstructive pulmonary disease) Current Visit: No Status: Chronic Assessment and plan: x of chronic COPD stable at the present time on Nasal cannula and is doing fine Qualifiers: COPD type: chronic bronchitis Chronic bronchitis type: simple Qualified Code(s): J41.0 - Simple chronic bronchitis (3) Congestive heart failure Current Visit: No Status: Chronic Assessment and plan: stable at the present time . will manage as needed breathing is base line at the present time Qualifiers: Congestive heart failure type: unspecified congestive heart failure type Congestive heart failure chronicity: chronic Qualified Code(s): I50.9 - Heart failure, unspecified (4) Diabetes Current Visit: No Status: Chronic Assessment and plan: blood sugars are high on Steriod as well . diet is not well controlled either Increase his insulin dose and adjust with PRN short acting insulin . Will continue ot adjust his insulin as needed Qualifiers: Diabetes mellitus type: type 2 Diabetes mellitus complication status: with hyperglycemia Diabetes mellitus flute polisher insulin use: without flute polisher use Qualified Code(s): E11.65 - Type 2 diabetes mellitus with hyperglycemia - Subjective Interval history: cross coverage seen for the first time . he denies any issues at the present time His breathing which he states is always short is his base line Pain is well controlled fracture left clavicle stable pain manageable - Constitutional Vitals: Temp Pulse Resp BP Pulse Ox 98.2 F 77 16 161/68 99 03/04/17 19:24 03/04/17 19:24 03/04/17 19:24 03/04/17 19:24 03/04/17 19:24 General appearance: Present: A&O X 3, pleasant. Absent: no acute distress, severe distress - Head Head exam: Present: normal inspection Additional comments: sawant face - Eye Eye exam: Present: EOMI, PERRL Pupils: Present: PERRL - Neck Neck exam general surgery: Present: supple. Absent: tenderness, nuchal rigidity - Respiratory Additional comments: decrease breath sound but essentially clear to auscultation no wheeze noted on 2 liters and stable - Cardiovascular Cardiovascular exam: Present: RRR, +S1, +S2. Absent: irregular rhythm, JVD, systolic murmur - GI/Abdominal GI/Abdominal exam: Present: normal bowel sounds, soft. Absent: firm, guarding, rigid - Extremities Exam Extremities exam: Present: pedal edema Additional comments: both sides - Neurological Exam Neurological exam: Present: CN II-XII intact, oriented X3, strengths equal and symetr throughout Additional comments: non focal but limited examination due to his fracutre on the eight side and overall condition Internal Medicine: Result - Labs CBC & Chem 7: 03/04/17 11:21 03/01/17 06:18 Labs: Short CBC 03/04/17 Range/Units 11:21 WBC 4.8 D (4.3-11.1) K/mcL Hgb 9.2 L D (12.9-16.9) g/dL Hct 27.4 L (37.5-50.1) % Plt Count 106 L (140-400) K/mcL Neutrophils # 4.2 (1.6-8.9) K/mcL noted - ABG Interpretation ABG results: PT/INR, D-dimer PT 14.9 Seconds (9.4-12.1) H 03/01/17 06:18 Consult Discharge Plan - Plan Referrals: Babatunde Maldonado, HIGH SCHOOL SOCIAL STUDIES TEACHER [Primary Care Provider] -
[2017-03-04] MEDS ORDERED: Insulin DETEMIR 100 UNIT/ML per UNIT SQ ONE (21:00)
[2017-03-05] MEDS: *HR* OxyCODONE Immed Rel 5 MG TABLET PO PRN (05:59)
[2017-03-05] MEDS: (Roflumilast [Daliresp] 500 MCG) PO SCH (08:12)
[2017-03-05] MEDS: Insulin LISPRO 300 UNITS/3 ML VIAL SQ SCH ×4 (08:27→20:55)
[2017-03-05] MEDS: Acyclovir 200 MG CAPSULE PO SCH ×2 (08:29→20:55)
[2017-03-05] MEDS: Gabapentin 300 MG CAPSULE PO SCH ×2 (08:29→20:55)
[2017-03-05] MEDS: Primidone 50 MG TABLET PO SCH ×2 (08:30→20:54)
[2017-03-05] MEDS: Aspirin Enteric Coated 81 MG Tablet PO SCH (08:30)
[2017-03-05] MEDS: *HR* SitaGLIPtin 100 MG TABLET PO SCH (08:31)
[2017-03-05] MEDS: Folic Acid 1 MG TABLET PO SCH (08:31)
[2017-03-05] MEDS: Budesonide/Formoterol 160/4.5 MDI IH SCH ×2 (09:46→21:03)
[2017-03-05] MEDS: *HR* FentaNYL PATCH 25 MCG PATCH TD SCH (11:48)
--- NOTE | 2017-03-05 17:31 | Internal Med Progress Note ---
Date of Encounter: 03/05/17 Time of Encounter: 17:29 - Assessment and plan (1) Multiple myeloma Current Visit: Yes Status: Acute Assessment and plan: CBC and other labs are stable H/H is stable pain is well controlled On chemo every week Qualifiers: Multiple myeloma remission status: unspecified Qualified Code(s): C90.00 - Multiple myeloma not having achieved remission (2) COPD (chronic obstructive pulmonary disease) Current Visit: No Status: Chronic Assessment and plan: on oxygen he is less SOB today feels much better Qualifiers: COPD type: chronic bronchitis Chronic bronchitis type: simple Qualified Code(s): J41.0 - Simple chronic bronchitis (3) Congestive heart failure Current Visit: No Status: Chronic Qualifiers: Congestive heart failure type: unspecified congestive heart failure type Congestive heart failure chronicity: chronic Qualified Code(s): I50.9 - Heart failure, unspecified (4) Diabetes Current Visit: No Status: Chronic Assessment and plan: Blood sugars high increase regular insulin sliding scale and long acting detemir to 20 units HS On steroid . Qualifiers: Diabetes mellitus type: type 2 Diabetes mellitus complication status: with hyperglycemia Diabetes mellitus terminal make up operator insulin use: without terminal make up operator use Qualified Code(s): E11.65 - Type 2 diabetes mellitus with hyperglycemia - Subjective Interval history: Doing much better less SOB wants to go home . Feels that his PT is helping him no fever or chill otherwise no other complains - Constitutional Vitals: Temp Pulse Resp BP Pulse Ox 98.3 F 66 18 149/69 99 03/05/17 07:00 03/05/17 07:00 03/05/17 07:00 03/05/17 07:00 03/05/17 12:10 General appearance: Present: A&O X 3, pleasant. Absent: no acute distress, severe distress - Head Head exam: Present: atraumatic - Eye Eye exam: Present: EOMI, PERRL - Neck Neck exam general surgery: Present: supple. Absent: nuchal rigidity - Respiratory Respiratory exam: Present: CTAB Additional comments: essentailly clear no wheeze noted - Cardiovascular Cardiovascular exam: Present: RRR, +S1, +S2. Absent: irregular rhythm, JVD - GI/Abdominal GI/Abdominal exam: Present: normal bowel sounds, soft. Absent: distended, guarding - Extremities Exam Extremities exam: Present: pedal edema Additional comments: pitting B ++ - Neurological Exam Neurological exam: Present: oriented X3, no focal deficits, strengths equal and symetr throughout. Absent: facial droop, speech deficit Internal Medicine: Result - Labs CBC & Chem 7: 03/04/17 11:21 03/01/17 06:18 - ABG Interpretation ABG results: PT/INR, D-dimer PT 14.9 Seconds (9.4-12.1) H 03/01/17 06:18 Consult Discharge Plan - Plan Referrals: Babatunde Maldonado, TOP FRAME MAKER [Primary Care Provider] -
[2017-03-05] MEDS ORDERED: Insulin DETEMIR 100 UNIT/ML X5UNITS SQ SCH (21:00)
[2017-03-05] MEDS ORDERED: Insulin DETEMIR 100 UNIT/ML per UNIT SQ ONE ×3 (21:00)
[2017-03-06] MEDS: Acyclovir 200 MG CAPSULE PO SCH ×2 (08:31→21:00)
[2017-03-06] MEDS: Folic Acid 1 MG TABLET PO SCH (08:32)
[2017-03-06] MEDS: *HR* SitaGLIPtin 100 MG TABLET PO SCH (08:32)
[2017-03-06] MEDS: *HR* OxyCODONE Immed Rel 5 MG TABLET PO PRN ×2 (08:32→20:59)
[2017-03-06] MEDS: Primidone 50 MG TABLET PO SCH ×2 (08:32→20:59)
[2017-03-06] MEDS: Aspirin Enteric Coated 81 MG Tablet PO SCH (08:32)
[2017-03-06] MEDS: Gabapentin 300 MG CAPSULE PO SCH ×2 (08:32→21:00)
[2017-03-06] MEDS: (Roflumilast [Daliresp] 500 MCG) PO SCH (08:35)
[2017-03-06] MEDS: Budesonide/Formoterol 160/4.5 MDI IH SCH ×2 (08:36→21:01)
[2017-03-06] MEDS: Insulin LISPRO 300 UNITS/3 ML VIAL SQ SCH ×4 (08:36→20:58)
--- NOTE | 2017-03-06 10:04 | Internal Med Progress Note ---
Date of Encounter: 03/06/17 Time of Encounter: 10:02 - Assessment and plan (1) Multiple myeloma Current Visit: Yes Status: Acute Assessment and plan: pain is well controlled on present management no other issues getting chemo labs are reasonable to baseline Qualifiers: Multiple myeloma remission status: unspecified Qualified Code(s): C90.00 - Multiple myeloma not having achieved remission (2) COPD (chronic obstructive pulmonary disease) Current Visit: No Status: Chronic Assessment and plan: stable no issues to his baseline Qualifiers: COPD type: chronic bronchitis Chronic bronchitis type: simple Qualified Code(s): J41.0 - Simple chronic bronchitis (3) Congestive heart failure Current Visit: No Status: Chronic Assessment and plan: stable Qualifiers: Congestive heart failure type: unspecified congestive heart failure type Congestive heart failure chronicity: chronic Qualified Code(s): I50.9 - Heart failure, unspecified (4) Diabetes Current Visit: No Status: Chronic Assessment and plan: blood sugars are some what better increase insulin dose again and followup Qualifiers: Diabetes mellitus type: type 2 Diabetes mellitus complication status: with hyperglycemia Diabetes mellitus nursing home insulin use: without nursing home use Qualified Code(s): E11.65 - Type 2 diabetes mellitus with hyperglycemia - Subjective Interval history: Doing much better no new complains Breathing is coming to his base line he is getting up and moving around with help now - Constitutional Vitals: Temp Pulse Resp BP Pulse Ox 98.1 F 66 18 154/57 99 03/06/17 07:00 03/06/17 07:00 03/06/17 07:00 03/06/17 07:00 03/06/17 07:00 General appearance: Present: A&O X 3, pleasant. Absent: no acute distress, severe distress - Eye Eye exam: Present: EOMI, PERRL - Neck Neck exam general surgery: Present: supple. Absent: tenderness - Respiratory Respiratory exam: Present: CTAB. Absent: respiratory distress, rhonchi, stridor , wheezes, tachypnea - Cardiovascular Cardiovascular exam: Present: RRR, +S1, +S2. Absent: irregular rhythm, JVD - GI/Abdominal GI/Abdominal exam: Present: normal bowel sounds, soft. Absent: firm, guarding, hernia, rebound, rigid - Extremities Exam Extremities exam: Present: pedal edema Additional comments: edema both side improving Internal Medicine: Result - Labs CBC & Chem 7: 09/28/17 11:21 03/01/17 06:18 - ABG Interpretation ABG results: PT/INR, D-dimer PT 14.9 Seconds (9.4-12.1) H 03/01/17 06:18 Consult Discharge Plan - Plan Referrals: Babatunde Maldonado, NURSE INTERN [Primary Care Provider] -
[2017-03-06] MEDS: Sennosides 8.6 MG TABLET PO PRN (20:59)
[2017-03-06] MEDS ORDERED: Insulin DETEMIR 100 UNIT/ML X5UNITS SQ SCH ×2 (21:00)
[2017-03-07] MEDS: Budesonide/Formoterol 160/4.5 MDI IH SCH ×2 (08:44→21:00)
[2017-03-07] MEDS: Aspirin Enteric Coated 81 MG Tablet PO SCH (08:45)
[2017-03-07] MEDS: Gabapentin 300 MG CAPSULE PO SCH ×2 (08:45→20:59)
[2017-03-07] MEDS: Folic Acid 1 MG TABLET PO SCH (08:45)
[2017-03-07] MEDS: Primidone 50 MG TABLET PO SCH ×2 (08:45→20:58)
[2017-03-07] MEDS: Acyclovir 200 MG CAPSULE PO SCH ×2 (08:46→20:59)
[2017-03-07] MEDS: (Roflumilast [Daliresp] 500 MCG) PO SCH (08:46)
[2017-03-07] MEDS: Insulin LISPRO 300 UNITS/3 ML VIAL SQ SCH ×4 (08:46→20:59)
[2017-03-07] MEDS: *HR* SitaGLIPtin 100 MG TABLET PO SCH (08:46)
--- NOTE | 2017-03-07 10:08 | Internal Med Progress Note ---
Date of Encounter: 03/07/17 Time of Encounter: 10:06 - Assessment and plan (1) Multiple myeloma Current Visit: Yes Status: Acute Assessment and plan: on chemo follows with Hem/onc clinic no new change Qualifiers: Multiple myeloma remission status: unspecified Qualified Code(s): C90.00 - Multiple myeloma not having achieved remission (2) COPD (chronic obstructive pulmonary disease) Current Visit: No Status: Chronic Assessment and plan: increase ambulation as tolerated requires oxygen Qualifiers: COPD type: chronic bronchitis Chronic bronchitis type: simple Qualified Code(s): J41.0 - Simple chronic bronchitis (3) Congestive heart failure Current Visit: No Status: Chronic Assessment and plan: stable at the present time no new change Qualifiers: Congestive heart failure type: unspecified congestive heart failure type Congestive heart failure chronicity: chronic Qualified Code(s): I50.9 - Heart failure, unspecified (4) Diabetes Current Visit: No Status: Chronic Assessment and plan: blood sugars are getting better after adjsuting his insulin increase long acting by few more units . once off Steriod , insulin will likely have to be adjusted downwards again Qualifiers: Diabetes mellitus type: type 2 Diabetes mellitus complication status: with hyperglycemia Diabetes mellitus adjunct faculty for medical terminology insulin use: without fci use Qualified Code(s): E11.65 - Type 2 diabetes mellitus with hyperglycemia - Subjective Interval history: doing much better breathing is back to his base line no longe having an issue overall feels fine no fever or chills - Constitutional Vitals: Temp Pulse Resp BP Pulse Ox 98.1 F 65 18 152/69 98 03/07/17 07:00 03/07/17 07:00 03/07/17 07:00 03/07/17 07:00 03/07/17 07:00 General appearance: Present: A&O X 3, pleasant, answers questions appropriately. Absent: no acute distress, obese, severe distress - Head Head exam: Present: atraumatic - Eye Eye exam: Present: EOMI, PERRL. Absent: scleral icterus, conjuntiva pink - Neck Neck exam general surgery: Present: tenderness, nuchal rigidity. Absent: supple - Respiratory Respiratory exam: Present: CTAB. Absent: chest wall tenderness, rales, respiratory distress, rhonchi, stridor, wheezes, tachypnea - Cardiovascular Cardiovascular exam: Present: RRR, +S1, +S2. Absent: irregular rhythm, JVD - GI/Abdominal GI/Abdominal exam: Present: normal bowel sounds, soft. Absent: firm, guarding, mass, rigid, tenderness - Extremities Exam Extremities exam: Present: pedal edema. Absent: tenderness, warm - Skin Additional comments: multiple place of bruises Internal Medicine: Result - Labs CBC & Chem 7: 03/04/17 11:21 03/01/17 06:18 - ABG Interpretation ABG results: PT/INR, D-dimer PT 14.9 Seconds (9.4-12.1) H 03/01/17 06:18 Consult Discharge Plan - Plan Referrals: Babatunde Maldonado, SWITCHBOARD MECHANIC [Primary Care Provider] -
[2017-03-07] MEDS: Insulin DETEMIR 100 UNIT/ML X5UNITS SQ SCH (20:59)
[2017-03-08 06:11] LABS: Basophils % 0.2 %; Hematocrit 30.5 % (37.5-50.1); Hemoglobin 10.6 g/dL (12.9-16.9); Immature Granulocytes % 1.6 % (0-4); Lymphocytes # 0.4 K/mcL (0.6-4.6); Lymphocytes % 7.1 %; Mean Corpuscular HGB Conc 34.8 g/dL (31.6-35.5); Mean Corpuscular Hemoglobin 30.5 pg (28.0-33.3); Mean Corpuscular Volume 87.9 fL (83.0-100.0); Mean Platelet Volume 11.1 fL (9.4-12.4); Monocytes # 0.2 K/mcL (0.0-1.3); Monocytes % 3.8 %; Neutrophils # 4.4 K/mcL (1.6-8.9); Platelet Count 100 K/mcL (140-400); Red Blood Count 3.47 M/mcL (4.19-5.50); Red Cell Distribution Width 14.9 % (11.5-14.5); Segmented Neutrophils % 87.3 %
[2017-03-08 06:45] LABS: BUN/Creatinine Ratio 31 (6-26); Blood Urea Nitrogen 22 mg/dL (8-26); Calcium 8.7 mg/dL (8.6-10.8); Carbon Dioxide 20 mEq/L (19-29); Chloride 96 mEq/L (98-109); Glucose 210 mg/dL (70-99); Osmolality,Calculated 280 (280-300); Potassium 4.5 mEq/L (3.5-4.5); Sodium 130 mEq/L (136-145); eGFR For African Americans > 60 (> 60); eGFR For Non-African Americans > 60 (> 60)
[2017-03-08 06:46] LABS: INR 1.3
[2017-03-08] MEDS: Primidone 50 MG TABLET PO SCH ×2 (07:10→23:14)
[2017-03-08] MEDS: *HR* OxyCODONE Immed Rel 5 MG TABLET PO PRN (07:10)
[2017-03-08] MEDS: Folic Acid 1 MG TABLET PO SCH (07:10)
[2017-03-08] MEDS: *HR* SitaGLIPtin 100 MG TABLET PO SCH (07:10)
[2017-03-08] MEDS: Aspirin Enteric Coated 81 MG Tablet PO SCH (07:18)
[2017-03-08] MEDS: Gabapentin 300 MG CAPSULE PO SCH ×2 (07:18→23:15)
[2017-03-08] MEDS: Insulin LISPRO 300 UNITS/3 ML VIAL SQ SCH ×4 (07:18→22:53)
[2017-03-08] MEDS: Acyclovir 200 MG CAPSULE PO SCH ×2 (07:18→23:14)
[2017-03-08] MEDS: (Roflumilast [Daliresp] 500 MCG) PO SCH (07:18)
[2017-03-08] MEDS: Budesonide/Formoterol 160/4.5 MDI IH SCH ×2 (10:00→23:16)
[2017-03-08] MEDS: *HR* FentaNYL PATCH 25 MCG PATCH TD SCH (23:09)
[2017-03-08] MEDS: Insulin DETEMIR 100 UNIT/ML X5UNITS SQ SCH (23:16)
[2017-03-09] MEDS: Aspirin Enteric Coated 81 MG Tablet PO SCH (08:01)
[2017-03-09] MEDS: Primidone 50 MG TABLET PO SCH ×2 (08:01→22:21)
[2017-03-09] MEDS: Folic Acid 1 MG TABLET PO SCH (08:01)
[2017-03-09] MEDS: *HR* SitaGLIPtin 100 MG TABLET PO SCH (08:01)
[2017-03-09] MEDS: Gabapentin 300 MG CAPSULE PO SCH ×2 (08:02→22:22)
[2017-03-09] MEDS: Acyclovir 200 MG CAPSULE PO SCH ×2 (08:02→22:22)
[2017-03-09] MEDS: (Roflumilast [Daliresp] 500 MCG) PO SCH (08:04)
[2017-03-09] MEDS: Insulin LISPRO 300 UNITS/3 ML VIAL SQ SCH ×4 (08:04→17:30)
[2017-03-09] MEDS: Budesonide/Formoterol 160/4.5 MDI IH SCH ×2 (08:09→22:23)
--- NOTE | 2017-03-09 15:15 | Internal Med Progress Note ---
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 - Constitutional Vitals: Temp Pulse Resp BP Pulse Ox 98.2 F 78 14 133/65 97 03/09/17 08:05 03/09/17 08:05 03/08/17 23:01 03/09/17 08:05 03/09/17 08:05 General appearance: Present: A&O X 3, pleasant, answers questions appropriately. Absent: no acute distress, obese, severe distress - Head Head exam: Present: atraumatic, normocephalic - Neck Neck exam general surgery: Present: supple, trachea midline. Absent: lymphadenopathy - Respiratory Respiratory exam: Present: CTAB. Absent: accessory muscle use, rales, rhonchi, wheezes - Cardiovascular Cardiovascular exam: Present: RRR, +S1, +S2. Absent: diastolic murmur, gallop, rubs, systolic murmur Internal Medicine: Result - Labs CBC & Chem 7: 03/08/17 05:35 03/08/17 05:35 Labs: His hemoglobin was 10 yesterday is very good - ABG Interpretation ABG results: PT/INR, D-dimer PT 14.0 Seconds (9.4-12.1) H 03/08/17 06:15 Consult Discharge Plan - Plan Referrals: Babatunde Maldonado, [employer] [Primary Care Provider] -
[2017-03-09] MEDS ORDERED: Dextrose Gel 15 GM PO PRN ×2 (16:54)
[2017-03-09] MEDS ORDERED: *HR* Dextrose 50 % in Water (Syg) 50 ML SYRINGE IVP PRN (16:54)
[2017-03-09] MEDS ORDERED: D5% in Water 1,000 ML IVC PRN (16:54)
[2017-03-09] MEDS ORDERED: Insulin LISPRO 300 UNITS/3 ML VIAL SQ SCH (21:00)
[2017-03-09] MEDS: Insulin DETEMIR 100 UNIT/ML X5UNITS SQ SCH (22:23)
[2017-03-10] MEDS: *HR* Enoxaparin 40 MG/0.4 ML SYRINGE SQ SCH (07:01)
[2017-03-10 08:01] VITALS: BP 135/52
[2017-03-10] MEDS: Primidone 50 MG TABLET PO SCH (09:08)
[2017-03-10] MEDS: Folic Acid 1 MG TABLET PO SCH (09:09)
[2017-03-10] MEDS: *HR* SitaGLIPtin 100 MG TABLET PO SCH (09:09)
[2017-03-10] MEDS: *HR* OxyCODONE Immed Rel 5 MG TABLET PO PRN (09:09)
[2017-03-10] MEDS: Aspirin Enteric Coated 81 MG Tablet PO SCH (09:09)
[2017-03-10] MEDS: Acyclovir 200 MG CAPSULE PO SCH (09:09)
[2017-03-10] MEDS: Gabapentin 300 MG CAPSULE PO SCH (09:09)
[2017-03-10] MEDS: (Roflumilast [Daliresp] 500 MCG) PO SCH (09:18)
[2017-03-10] MEDS: Insulin LISPRO 300 UNITS/3 ML VIAL SQ SCH ×2 (09:19→12:31)
--- NOTE | 2017-03-10 11:25 | Discharge Summary ---
Date of Encounter: 03/10/17 Time of Encounter: 11:23 - Discharge Diagnosis (1) Multiple myeloma Priority: Secondary Status: Chronic Qualifiers: Multiple myeloma remission status: not in remission Qualified Code(s): C90.00 - Multiple myeloma not having achieved remission (2) Malignant bone pain Priority: Primary Status: Chronic Comments: Patient had a fall and a and fractured his clavicle. This was due to a lesion from the multiple myeloma. States he feels pretty good nail and is functioning well and eating. His blood his diminished in his urine. He does have a follow- up with the urologist (3) Community acquired pneumonia Priority: Primary Status: Acute Qualifiers: Qualified Code(s): J18.9 - Pneumonia, unspecified organism - Discharge Medications Home Medications: Levothyroxine [Synthroid] 175 mcg PO DAILY 09/06/15 [History] Aspirin [Adult Low Dose Aspirin EC] 81 mg PO DAILY 09/13/15 [History] Primidone [Mysoline] 50 mg PO BID 08/24/16 [History] Lansoprazole [Prevacid] 30 mg PO DAILY 09/05/16 [History] Sennosides [Senna] 8.6 mg PO BID PRN 11/02/16 [History] Polyethylene Glycol 3350 [MiraLAX bowel prep] 17 gm PO DAILY PRN 11/03/16 [ History] Budesonide/Formoterol 160/4.5 [Symbicort 160/4.5] 2 puff IH BIDR #5 hfa.aer.ad 11/05/16 [Rx] SitaGLIPtin [Januvia] 100 mg PO DAILY 11/30/16 [History] Acyclovir [Zovirax] 400 mg PO BID #60 tablet 12/28/16 [Rx] Ondansetron HCl [Zofran] 4 mg PO TID PRN #90 tablet 12/28/16 [Rx] Citalopram Hydrobromide [Celexa] 20 mg PO DAILY #30 tab 01/18/17 [Rx] Dexamethasone [Decadron] 10 mg PO QID tablet 02/28/17 [Rx] FentaNYL PATCH [Duragesic] 25 mcg TD Q72H #10 patch.td72 02/28/17 [Rx] Folic Acid 1 mg PO DAILY tablet 02/28/17 [Rx] Gabapentin [Neurontin] 300 mg PO BID #30 capsule 02/28/17 [Rx] Insulin LISPRO [HumaLOG] 0 units SQ HS vial 02/28/17 [Rx] Insulin LISPRO [HumaLOG] 0 units SQ TIDAC vial 02/28/17 [Rx] OxyCODONE Immed Rel [Roxicodone 5 MG] 5 mg PO BID PRN #14 tablet 02/28/17 [Rx] clonazePAM [Klonopin] 0.5 mg PO BID PRN #14 tablet 02/28/17 [Rx] Amoxicillin/Clavulanate [Augmentin] 875 mg PO BIDWM #10 tablet 03/08/17 [Rx] Dextrose 5 % in Water [Dextrose 5%-Water IV Soln] 1,000 ml IV Q10H PRN 03/08/17 [History] Dextrose 5 % in Water [Dextrose 5%-Water IV Soln] 25 ml IV AD PRN 03/08/17 [ History] Dextrose [Glucose] 15 gm PO ONCE PRN 03/08/17 [History] Dextrose [Glucose] 33 gm PO ONCE PRN 03/08/17 [History] Enoxaparin [Lovenox] 40 mg SQ DAILY 03/08/17 [History] Glucagon HCl 1 mg IM ONCE PRN 03/08/17 [History] Insulin DETEMIR [Levemir] 26 unit SQ HS 03/08/17 [History] Ipratropium/Albuterol Neb [Duoneb] 3 ml IH Q4HR PRN 03/08/17 [History] Allergies/Adverse Reactions: 3 Allergy/AdvReac Type Severity Reaction Status Date / Time No Known Allergies Allergy Verified 11/30/16 12:12 Date of admission: 02/28/17 17:11 Primary care physician: Babatunde Maldonado CNP Consults: 02/28/17 18:22 Consult to Occupational Therapy [CONS] Routine Comment: Evaluate, develop and implement POC Reason for Consult: REHAB Consult to Physical Therapy [CONS] Routine Comment: Evaluate, develop and implement POC Reason for Consult: REHAB Consult to Recreational Therapy [CONS] Routine Comment: Evaluate, develop and implement POC Consult to Poultry Offal Icer [CONS] Routine Reason for SW Consult: REHAB 02/28/17 19:53 Consult to Speech Therapy [CONS] Routine Comment: Evaluate, develop and implement POC Reason for Consult: supervised feed? Weakness Call Completed: No 03/01/17 14:30 Consult to Psychology [CONS] Routine Consulting Provider: Sarina Nur Reason for Consult: kidney injury Call Completed: Yes Discharging clinician: Santos Suárez Anticipated date of discharge: 03/10/17 - Patient Status Disposition: Home Health Service Condition: Fair Functional capacity at discharge: uses cane/walker Overall status at discharge: patient is progressing back to baseline - Discharge Instructions Follow Up With: Babatunde Maldonado, [employer] [Primary Care Provider] - Interval History: She was brought in for deconditioning due to multiple multiple medical problems along with confusion and he hematuria. Hospital course: Mr. Joseph is a 71 year old male Who was brought here for deconditioning due to multiple medical problems. He is moving much better and will be discharged home with home health - Time Spent with Patient Total time spent providing and/or coordinating discharge services: Less than 30 minutes - Constitutional Vitals: Temp Pulse Resp BP Pulse Ox 98 F 67 15 135/52 97 03/10/17 07:00 03/10/17 07:00 03/10/17 07:00 03/10/17 07:00 03/10/17 07:00 General appearance: Present: A&O X 3, pleasant, answers questions appropriately. Absent: no acute distress, obese, severe distress - Head Head exam: Present: atraumatic, normal inspection, normocephalic - Neck Neck exam general surgery: Present: supple, trachea midline. Absent: lymphadenopathy - Respiratory Respiratory exam: Present: CTAB. Absent: accessory muscle use, rales, rhonchi, wheezes - Cardiovascular Cardiovascular exam: Present: RRR, +S1, +S2. Absent: diastolic murmur, gallop, rubs, systolic murmur - GI/Abdominal GI/Abdominal exam: Present: normal bowel sounds, soft, no peritoneal signs. Absent: distended, tenderness
--- NOTE | 2017-03-10 11:30 | Physician Discharge Referral ---
Home Health/Hosp Referral Info Transfer to: Home Health Provider in Charge Post Discharge: PCP - Diagnosis (1) Multiple myeloma Priority: Secondary Status: Chronic (2) Malignant bone pain Priority: Primary Status: Chronic (3) Community acquired pneumonia Priority: Primary Status: Acute - Respiratory Orders Smoking Cessation: Smoking cessation has been advised. For more information, call the [place] Tobacco Quit Line at 2-633-HUOE-NOW. - Diet/Nutrition Diet/Nutrition Orders: No Concentrated Sweets - Activity Activity Orders: Walker - Services Needed Following services are medically necessary services: Nursing, Physical Therapy, Occupational Therapy - Transfer Medications Home Medications: Levothyroxine [Synthroid] 175 mcg PO DAILY 09/06/15 [History] Aspirin [Adult Low Dose Aspirin EC] 81 mg PO DAILY 09/13/15 [History] Primidone [Mysoline] 50 mg PO BID 08/24/16 [History] Lansoprazole [Prevacid] 30 mg PO DAILY 09/05/16 [History] Sennosides [Senna] 8.6 mg PO BID PRN 11/02/16 [History] Polyethylene Glycol 3350 [MiraLAX bowel prep] 17 gm PO DAILY PRN 11/03/16 [ History] Budesonide/Formoterol 160/4.5 [Symbicort 160/4.5] 2 puff IH BIDR #5 hfa.aer.ad 11/05/16 [Rx] SitaGLIPtin [Januvia] 100 mg PO DAILY 11/30/16 [History] Acyclovir [Zovirax] 400 mg PO BID #60 tablet 12/28/16 [Rx] Ondansetron HCl [Zofran] 4 mg PO TID PRN #90 tablet 12/28/16 [Rx] Citalopram Hydrobromide [Celexa] 20 mg PO DAILY #30 tab 01/18/17 [Rx] Dexamethasone [Decadron] 10 mg PO QID tablet 02/28/17 [Rx] FentaNYL PATCH [Duragesic] 25 mcg TD Q72H #10 patch.td72 02/28/17 [Rx] Folic Acid 1 mg PO DAILY tablet 02/28/17 [Rx] Gabapentin [Neurontin] 300 mg PO BID #30 capsule 02/28/17 [Rx] Insulin LISPRO [HumaLOG] 0 units SQ HS vial 02/28/17 [Rx] Insulin LISPRO [HumaLOG] 0 units SQ TIDAC vial 02/28/17 [Rx] OxyCODONE Immed Rel [Roxicodone 5 MG] 5 mg PO BID PRN #14 tablet 02/28/17 [Rx] clonazePAM [Klonopin] 0.5 mg PO BID PRN #14 tablet 02/28/17 [Rx] Amoxicillin/Clavulanate [Augmentin] 875 mg PO BIDWM #10 tablet 03/08/17 [Rx] Dextrose 5 % in Water [Dextrose 5%-Water IV Soln] 1,000 ml IV Q10H PRN 03/08/17 [History] Dextrose 5 % in Water [Dextrose 5%-Water IV Soln] 25 ml IV AD PRN 03/08/17 [ History] Dextrose [Glucose] 15 gm PO ONCE PRN 03/08/17 [History] Dextrose [Glucose] 33 gm PO ONCE PRN 03/08/17 [History] Enoxaparin [Lovenox] 40 mg SQ DAILY 03/08/17 [History] Glucagon HCl 1 mg IM ONCE PRN 03/08/17 [History] Insulin DETEMIR [Levemir] 26 unit SQ HS 03/08/17 [History] Ipratropium/Albuterol Neb [Duoneb] 3 ml IH Q4HR PRN 03/08/17 [History] Allergies/Adverse Reactions: 3 Allergy/AdvReac Type Severity Reaction Status Date / Time No Known Allergies Allergy Verified 11/30/16 12:12 Certification: Further, I certify that my clinical findings support that this patient is homebound (i.e. absences from home require considerable and taxing effort and are for medical reasons or hinduism services or infrequently or short duration when for other reasons) because: Homebound Reason: Patient requires assistance of a person or device to safely leave home Attestation: My signature below is to certify that this patient is under my care and that I, or nurse practitioner, or a physician's trading assistant working with me, has a face-to -face encounter with this patient.
[2017-03-10] MEDS: Budesonide/Formoterol 160/4.5 MDI IH SCH (12:33)
== END 2017-03-10 15:23 | disposition home health service (06) | DRG 945 ==
LOC: INPGRE 02-28 17:11
PROVIDERS: ADMIT Internal Medicine; ATTEND Internal Medicine